=== PATIENT | male | born 1960 | race Caucasian/White ===

== ENCOUNTER 2024-09-18 13:38 | Outpatient (AMB) | payer OTHER, SELFPAY ==
--- NOTE | 2024-09-18 13:40 | MHC.OFFVIS ---
Vital Signs 09/18/24 13:47 Height 5 ft 4 in Weight 88 lb 2.958 oz BMI 15.1 BP 120/70 Blood Pressure Location Lt brachial Position Sitting Pulse 85 Pulse Source Pulse Oximeter Pulse Oximetry (%) 94 Oxygen Delivery Method Nasal Cannula Intake Visit Reasons: chronic resp failure with hypoxia Accompanied by: Self / Same As Patient Allergies amoxicillin [From Augmentin] Allergy (Intermediate, Verified 09/18/24 13:48) Rash azithromycin Allergy (Intermediate, Verified 09/18/24 13:48) Rash clavulanic acid [From Augmentin] Allergy (Intermediate, Verified 09/18/24 13:48) Rash HPI Comments Details: The patient is here for pulmonary evaluation. The patient is a 64-year-old gentleman with known COPD with extensive emphysema and chronic respiratory failure on oxygen in addition to HIV chronic kidney disease and heart failure. Apparently was recently admitted to [facility] with an exacerbation of his breathing. He did have a CT scan of the chest which I personally reviewed demonstrating extensive emphysema and also has some evidence of ground-glass opacities likely from a viral syndrome. He did have a blood gas in the hospital demonstrated that he does have evidence of both hypoxic and also hypercarbic respiratory failure. Has significant oxygen requirements. We did have him undergo a walk test here in the office to see if he would qualify for portable oxygen concentrator but his oxygen dropped to 86% demonstrating that needs to stay on continues oxygen. He gets the throughout. . His blood gas demonstrated a pCO2 of 64 minutes minutes of mercury. The patient has evidence of hypercarbic respiratory failure due to his COPD. This carries a poor prognosis and high risk for he has increased risk for rehospitalization. He does have increased work of breathing. He does need to started noninvasive ventilator to provide better gas exchange improved work of breathing and improve prognosis and decrease hospitalizations. Will going to work with his [employer] in order to get him a noninvasive ventilator this time. He is going to continue with respiratory therapy as he is using the nebulizer 2 to 3 times a day. [facility] Medical History (Updated 09/18/24 @ 20:19 by Bladimir Desir MD) CKD (chronic kidney disease) CHF (congestive heart failure) HIV (human immunodeficiency virus infection) Chronic hypoxemic respiratory failure Chronic hypercapnic respiratory failure COPD (chronic obstructive pulmonary disease) Social History (Updated 09/18/24 @ 13:49 by Saskia Reynaga CMA) Alcohol intake: former Patient Tobacco Use Status: Never used Tobacco Review of Systems Const Denies chills, Denies daytime sleepiness, Reports fatigue, Denies poor appetite, Denies snoring, Denies stops breathing during sleep, Denies weakness, Denies weight gain and Reports weight loss Eyes Denies loss of vision ENT Reports dizziness and Denies hearing loss Card Denies chest pain, Denies irregular heart rhythm, Denies claudication, Denies leg edema, Denies lightheadedness, Denies palpitations, Reports dyspnea, Reports dyspnea on exertion and Denies orthopnea Resp Reports cough, Denies hemoptysis, Denies excessive phlegm production, Reports dyspnea, Reports dyspnea on exertion, Denies snoring and Reports wheezing GI Denies abdominal pain, Denies hematochezia, Denies change in bowel habits, Denies nausea and Denies vomiting Denies dysuria and Denies urinary frequency Musc Denies arthralgias, Denies muscle weakness, Denies numbness and Denies other Skin/Breast Denies nail changes and Denies rash Neuro Denies Abnormal speech present, Reports dizziness, Denies loss of vision, Denies memory loss, Denies numbness and Denies weakness Psych Reports change in appetite and Denies memory loss Endo Reports fatigue and Denies palpitations Brayden/Lymph Denies easy bruising Aller/Immun Reports wheezing Physical Exam Vital Signs: Last Vital Signs Pulse 85 09/18/24 13:47 BP 120/70 09/18/24 13:47 Pulse Ox 94 09/18/24 13:47 Oxygen Delivery Method Nasal Cannula 09/18/24 13:47 BMI result Body Mass Index 15.1 Const General: comfortable and ill appearing Nutritional Appearance: thin HEENT Head: Yes normocephalic Eyes Conjunctivae: conjunctival abnormal bilateral pallor Neck Neck: Yes supple Chest Chest palpation & inspection: normal inspection of the chest Resp Effort & Inspection: normal respiratory effort Auscultation: diminished lung sounds Cardio Heart sounds: S1 normal heart sound present and S2 normal heart sound present GI Palpation (GI): Soft to palpation Skin General skin exam: no rashes or lesions noted Neuro Speech: No Abnormal speech present Extrem General: Yes clubbing, No cyanosis and No edema Assessment & Plan Assessment & Plan (1) COPD (chronic obstructive pulmonary disease): Code(s): J44.9 - Chronic obstructive pulmonary disease, unspecified Category: Medical Qualifiers: COPD type: emphysema Emphysema type: centrilobular Qualified Code(s): J43.2 - Centrilobular emphysema (2) Chronic hypercapnic respiratory failure: Code(s): J96.12 - Chronic respiratory failure with hypercapnia Category: Medical (3) Chronic hypoxemic respiratory failure: Code(s): J96.11 - Chronic respiratory failure with hypoxia Category: Medical (4) HIV (human immunodeficiency virus infection): Code(s): Z21 - Asymptomatic human immunodeficiency virus [HIV] infection status Category: Medical Qualifiers: HIV symptom status: currently asymptomatic, with history of HIV-related illness Qualified Code(s): B20 - Human immunodeficiency virus [HIV] disease (5) CHF (congestive heart failure): Code(s): I50.9 - Heart failure, unspecified Category: Medical Qualifiers: Heart failure type: unspecified Heart failure chronicity: unspecified Qualified Code(s): I50.9 - Heart failure, unspecified (6) CKD (chronic kidney disease): Code(s): N18.9 - Chronic kidney disease, unspecified Category: Medical Qualifiers: Chronic kidney disease stage: unspecified stage Qualified Code(s): N18.9 - Chronic kidney disease, unspecified Plan Continue respiratory therapy Nebulizer therapy Bloodwork Start non invasive ventilator to help with his hypercarbia and increased work of breathing. He carries apoor prognosis and high risk for re-hopsitalization. I will start him on an non invasive ventilator and that will help improve his gas exchange and improve prognosis and decrease hospitalizations. continue oxygen supplementation, continuous. Does not qualify for a POC at this time PFTs F/U 2 months Orders: Orders Venous Blood Gas Today J44.9 - Chronic obstructive pulmonary disease, unspecified Complete Blood Count Auto Diff Today J44.9 - Chronic obstructive pulmonary disease, unspecified Alpha 1 Anti-trypsin Today J44.9 - Chronic obstructive pulmonary disease, unspecified PFT pulmonary function test Today J43.2 - Centrilobular emphysema Basic Metabolic Panel Today J44.9 - Chronic obstructive pulmonary disease, unspecified Erythrocyte Sedimentation Rate Today J44.9 - Chronic obstructive pulmonary disease, unspecified T Spot TB Today J44.9 - Chronic obstructive pulmonary disease, unspecified Immunoglobulins,IgG IgA IgM Today J44.9 - Chronic obstructive pulmonary disease, unspecified Immunoglobulin E Today J44.9 - Chronic obstructive pulmonary disease, unspecified Coding Level of Care Code New Pt Level 5 (31099) Diagnoses Centrilobular emphysema J43.2 COPD type: emphysema Emphysema type: centrilobular Chronic hypercapnic respiratory failure J96.12 Chronic hypoxemic respiratory failure J96.11 Currently asymptomatic HIV infection, with history of HIV-related illness B20 HIV symptom status: currently asymptomatic, with history of HIV-related illness Congestive heart failure, unspecified HF chronicity, unspecified heart failure type I50.9 Heart failure type: unspecified Heart failure chronicity: unspecified Chronic kidney disease, unspecified CKD stage N18.9 Chronic kidney disease stage: unspecified stage Time Spent (min) 60
[2024-09-18 13:47] VITALS: BP 120/70; PULSE 85; O2SAT 94; BMI 15.1
--- OUTSIDE RECORDS SUMMARY | 2024-09-18 16:09 | XMS_ITS | Encounter Summary ---
Author Organization [facility] Address [id number] [place] [address] Care Team Providers Care Kitchen Help Handyman Name Role Phone Pablo Hansen MD Primary Care Provider [phone] Reason for Visit * Reason Onset Date Comments Shortness of Breath 09/11/2024 Encounter Details Date Type Department Care Team (Late st Contact Info) Description 09/11/2024 Telephone [facility] - [facility] [address] [facility] [address] [place] [phone] Zeny Archer MD [address] [facility] [address] [place] [address] Shortness of Breath Social History Tobacco Use Types Packs/Day Years Used Date Smoking Tobacco: Never Smokeless Tobacco: Never Alcohol Use Standard Drinks/Week Comments No 0 (1 standard drink = 0.6 oz pur e alcohol) Sex and Gender Information Value Date Recorded Sex Assigned at Not on file Legal Sex Male 4:41 AM EST Gender Identity Not on file Sexual Orientation Not on file documented as of this encounter Progress Notes * Angelia Serna - 09/18/2024 9:16 AM EDT Spoke with the patient and scheduled for 09/27/24 with Jennifer Morataya. * Angelia Serna - 09/13/2024 9:21 AM EDT The patient is still admitted at [facility], will continue to monitor. * Susi Conner RN - 09/11/2024 1:17 PM EDT ACCESS : Please schedule pt for HFU Multiple [facility] admissions DC SUMMARY in media section of [facility]. Dx: SOB, fatigue, medication changes Spoke with sister Nataly informed she will hear from scheduling Pt had telehealth with PCP 08/03/24 Pulmonary 09/18/24 * JON Bullock - 09/11/2024 12:33 PM EDT He should see PCP prior to cardiology OV - he has significant anemia, had LETTY for which nephrotoxicmeds were held , he has severe emphysema with hypoxemia requiring O2 reschedule hospital follow up after seen by PCP plse * Susi Conner RN - 09/11/2024 11:42 AM EDT Pt has had three hospital stay at [facility] DC SUMMARY are all in media section Labs from 08/24/24 scanned into media section Pt seeing pulmonary 09/18/24 Dr quintero in [place]. Telehealth with PCP 08/03/24 Spoke with sister Nataly states pt is SOB with exertion. SOB has been increasing since Travon and Jovany were dc'd at [facility] in pt stay 07/21/24-07/28/24 for abnormal kidney lab work. Pt is very weak and fatigued. Sleeping 16 hours daily. Denies dizziness, feeling lightheaded. Denies PND, Orthopnea. Asking for a sooner appt than 11/28/24 to address medications and fatigue. Pt had to cancel 09/18 due to pulmonary appt * N'Liliana Mock - 09/11/2024 11:16 AM EDT Patient and his sister Nataly states patient was seen at [facility] within the last few months for COPD and he was taken off of his Entresto and Farxiga. Patient has been having a harder time breathing ever since. He has to sit down all the time after walking Patient gave verbal consent to speak toNataly. Please call her at [phone] documented in this encounter Plan of Treatment Upcoming Encounters Date Type Department Care Team (Late st Contact Info) Description 09/27/2024 2:40 PM EDT Office Visit [facility] - [address] [place] [address] Jennifer Morataya PA [address] [place] [address] 11/28/2024 1:45 PM EDT Office Visit [facility] - [address] [place] [phone] Zeny Archer MD [address] [place] [address] documented as of this encounter Visit Diagnoses Not on filedocumented in this encounter Care Teams Kitchen Help Handyman Relationship Specialty Start Date End Date Pablo Hansen MD [address] [place] [address] PCP - General 07/03/15 documented as of this encounter
--- OUTSIDE RECORDS SUMMARY | 2024-09-18 16:09 | XMS_ITS | Clinical Summary ---
Author Organization [address] [place] [address] Address [address] [place] [address] Phone Care Team Providers Care Food Cooking Machine Operator Name Role Phone Pablo Hansen MD Primary Care Provider [phone] Encounters Date Type Department Care Team Description 09/11/2024 Telephone [facility] - [facility] [address] [facility] [address] [place] [phone] Zeny Archer MD Shortness of Breath 08/24/2024 Telephone [facility] - [facility] [address] [facility] [address] [place] [address] Zeny Archer MD out of oxygen (SOB ) 08/18/2024 Telephone [facility] - [facility] [address] [facility] [address] [place] [phone] Zeny Archer MD called pt to r/s his 09/12/[address] Archer from Last 3 Months Surgical History Surgery Date Site/Laterality Comments COLONOSCOPY 03/14/2020 PROCEDURE: HISTORICAL COLONOSCOPY OTHER SURGICAL HISTORY 06/08/2017 PROCEDURE: HISTORY OTHER; COMMENT: Upper gastointestinal endoscopy including esophagus,stomach and either the duodenum and or jejunum as appropriate ;diagnostic, with or without collection of specimen(s) by brushing or washing (separate procedure) COLONOSCOPY 06/08/2016 PROCEDURE: HISTORICAL COLONOSCOPY OTHER SURGICAL HISTORY 11/12/2015 PROCEDURE: HISTORY OTHER; COMMENT: Lap Ileocolic resection w/ anastamosis OTHER SURGICAL HISTORY 06/2015 PROCEDURE: HISTORY OTHER; COMMENT: Dilitation of stricture of ileum ROTATOR CUFF REPAIR 2013 Right PROCEDURE: HISTORICAL ROTATOR CUFF REPAIR OTHER SURGICAL HISTORY PROCEDURE: HISTORY OTHER; COMMENT: Colonoscopy,EGD, multiple APPENDECTOMY PROCEDURE: HISTORICAL APPENDECTOMY; COMMENT: Appendectomy,lysis of adhesions Medical History Medical History Date Comments Anxiety DX:Anxiety Basal cell carcinoma DX:Basal ce ll carcinoma; COMMENT: sees Dr. Murcia BPH without obstruction/lowe r urinary tract symptoms DX:BPH without obstruction/l ower urinary tract symptoms CAD (coronary artery disease) DX :CAD (coronary artery disease); COMMENT: -NSTEMI 2017 Crohn's colitis ([facility] V24 , [facility] V28) DX:Crohn's colitis (HCC) Crohn's disease ([facility] V24 , [facility] V28) DX:Crohn's disease (HCC); CO MMENT: dx'd 06/2015 Depression DX:Depression Emphysema/COPD ([facility] V24, [facility] V28) DX:Emphysema/COPD ([facility]) Fatigue DX:Fatigue GERD (gastroesophageal reflux disease) DX:GERD (gastroesophageal reflux disease) H/O small bowel obstruction DX:H /O small bowel obstruction; COMMENT: Recurrent Hyperlipidemia DX:Hyperlipidemi a Hypertension DX:Hypertension Hypothyroidism DX:Hypothyroidis m Peripheral neuropathy DX:Periphe ral neuropathy Purpura ([facility] V24) DX:Purpura ([facility]) HIV (human immunodeficiency virus infection) ([facility] V24, [facility] V28) DX:HIV (human im munodeficiency virus infection) ([facility]) Dental infection DX:Dental infec tion Kidney disease, chronic, sta ge III (GFR 30-59 ml/min) ([facility] V24, [facility] V28) DX:Kidney dis ease, chronic, stage III (GFR 30-59 ml/min) ([facility]) COPD with emphysema ([facility] V24, [facility] V28) DX:COPD with emphysema ([facility]) 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 ([facility] V24, [facility] V28) DX:Non-pressure chronic ulce r of left ankle with fat layer exposed ([facility]) Chronic kidney disease (CKD) , stage II (mild) DX:Chronic kidney disease (C KD), stage II (mild) CKD (chronic kidney disease) DX: CKD (chronic kidney disease) Covid-19 DX:COVID-19 Abdominal pain DX:Abdominal bob n Anemia DX:Anemia Hematuria DX:Hematuria Immunocompromised state (CMS/[facility] V24) DX:Immunocompromised state (HCC) Legionella infection (CMS/HC C V24, CMS/HCC V28) DX:Legionella infection (HCC ) RLL pneumonia DX:RLL pneumonia Shoulder pain DX:Shoulder pain Family History Medical History Relation Name Comments Other: Hepatitis C Brother Sleep apnea Father Coronary artery disease Maternal Grandfather Lung cancer Maternal Grandmother Relation Name Status Comments Brother Father Maternal Grandfather Maternal Grandmother Social History Tobacco Use Types Packs/Day Years Used Date Smoking Tobacco: Never Smokeless Tobacco: Never Alcohol Use Standard Drinks/Week Comments No 0 (1 standard drink = 0.6 oz pur e alcohol) Sex and Gender Information Value Date Recorded Sex Assigned at Not on file Legal Sex Male 4:41 AM EST Gender Identity Not on file Sexual Orientation Not on file Obstetrics History Last Filed Vital Signs Vital Sign Reading Time Taken Comments Blood Pressure 142/78 11/02/2023 1:48 PM EDT Pulse 68 11/02/2023 1:34 PM EDT Temperature - - Respiratory Rate - - Oxygen Saturation - - Inhaled Oxygen Concentration - - Weight 49.1 kg (108 lb 3.2 oz) 11/02/2023 1:34 P M EDT Height 162.6 cm (5' 4 ) 11/02/2023 1:34 PM EDT Body Mass Index 18.57 11/02/2023 1:34 PM EDT Plan of Treatment Upcoming Encounters Date Type Department Care Team (Late st Contact Info) Description 09/27/2024 2:40 PM EDT Office Visit [facility] - [facility] [address] [facility] [address] [place] [phone] Jennifer Morataya PA [address] [place] [address] 11/28/2024 1:45 PM EDT Office Visit [facility] - [facility] [address] [place] [phone] Zeny Archer MD [address] [place] [address] Health Maintenance Due Date Last Done Comments Zoster Vaccines (1 of 2) 1979 Pneumococcal Vaccine: 50+ Years (3 of 3 - PCV) 07/16/2016 07/16/2015, 11/16/2011 RSV Immunization Adult Patients (1 - Risk 60-74 years 1-dose series) 2020 Pneumococcal Vaccine: Pediatrics (0 to 5 Years) and At-Risk Patients (6 to 64 Years) (4 of 4 - PCV20 or PCV21) 07/16/2020 07/16/2015, 02/13/2013, 11/16/2011 COVID-19 Vaccine (3 - Pfizer risk series) 09/09/2020 08/12/2020, 07/20/2020 Cholesterol Screening (Lipid Panel) 05/08/2022 Colorectal Cancer Screening: Colonoscopy 05/08/2022 Depression Screening 05/08/2022 HIV Screening 05/08/2022 Hepatitis C Screening 05/08/2022 Medicare Annual Wellness Visit 05/08/2022 Social Influencers of Health Screening 05/08/2022 DTaP,Tdap,and Td Vaccines (2 - Td or Tdap) 02/13/2023 02/13/2013 Hypertension/CHF/CAD Annual BMP Blood Test 12/06/2024 12/07/2023, 12/22/2022 Influenza Vaccine (Season Ended) 2025 04/03/2023, 06/12/2020, 03/28/2019, Additional history exists HIB Vaccines Aged Out No longer eligi ble based on patient's age to complete this topic HPV Vaccines Aged Out No longer eligi ble based on patient's age to complete this topic Hepatitis A Vaccines Aged Out No long er eligible based on patient's age to complete this topic Hepatitis B Vaccines Aged Out No long er eligible based on patient's age to complete this topic IPV Vaccines Aged Out No longer eligi ble based on patient's age to complete this topic MMR Vaccines Aged Out No longer eligi ble based on patient's age to complete this topic Meningococcal ACWY Vaccine Aged Out N o longer eligible based on patient's age to complete this topic Meningococcal B Vaccine Aged Out No l onger eligible based on patient's age to complete this topic RSV Immunization Patients Under 20 months Aged Out No longer eligible based on patient's age to complete this topic Varicella Vaccines Aged Out No longer eligible based on patient's age to complete this topic Procedures Procedure Name Priority Date/Time Associated Diagnosis Comments ECG EXTERNAL Routine 08/27/2024 7:44 AM EDT from Last 3 Months Results * ECG-External (08/27/2024 7:44 AM EDT) us Historical Provider ECG ORDERABLES Final Res ult from Last 3 Months Insurance [employer] MEDICARE Member Subscriber Plan / Payer (Ef fective 2024-Present) Name:Venu Parks Relation to Subscriber:Self Name:Venu Parks Payer ID:[id number] Group ID:Not on file Type:Not on file Address: [place] [address] [address] [place] [phone] Care Teams Food Cooking Machine Operator Relationship Specialty Start Date End Date Pablo Hansen MD [address] [place] [address] PCP - General 07/03/15
--- OUTSIDE RECORDS SUMMARY | 2024-09-18 16:09 | XMS_ITS | Clinical Summary ---
Author Organization [facility] Address [address] [place] [address] Phone Care Team Providers Care Railway Patrol Officer Name Role Phone Pablo Hansen MD Primary Care Provider [phone] Allergies Active Allergy Reactions Criticality Noted Date Comments Amoxicillin-Pot Clavulanate Other (see comments) Medium 01/22/2023 Other reaction(s): rash patient denies allergy to augmentin Benzonatate 12/22/2022 Medications Aspirin Low Dose 81 MG EC tablet Take 81 mg by mouth 1 (one) time each day 1 Active atorvastatin (LIPITOR) 40 MG tablet Take 40 mg by mouth 1 (one) time each day in the evening 1 Active azaTHIOprine (IMURAN) 50 MG tablet Take 50 mg by mouth 1 (one) time each day 1 Active [facility] D3 50 MCG (1999) capsule Take 2,000 Units by mouth 1 (one) time each day 1 Active Genvoya [phone] MG per tablet Take 1 tablet by mouth 1 (one) time each day 1 Active gabapentin (NEURONTIN) 100 MG capsule Take 100 mg by mouth 3 times a day 1 Active levothyroxine (SYNTHROID, LEVOTHROID) 50 MCG tablet Take 50 mcg by mouth 1 (one) time each day 1 Active metoprolol succinate XL (TOPROL XL) 50 MG 24 hr tablet Take 50 mg by mouth 1 (one) time each day 1 Active Multiple Vitamin (Daily-Vick Multivitamin) tablet Take 1 tablet by mouth 1 (one) time each day 1 Active tamsulosin (FLOMAX) 0.4 MG 24 hr capsule Take 0.4 mg by mouth 1 (one) time each day 1 Active venlafaxine XR (EFFEXOR-XR) 37.5 MG 24 hr capsule Take 75 mg by mouth 1 (one) time each day 1 Active clonazePAM (KlonoPIN) 1 MG tablet Take 1 mg by mouth 2 (two) times a day Active inFLIXimab (REMICADE) 100 MG injection Infuse into a venous catheter Active mirtazapine (REMERON) 45 MG tablet Take 45 mg by mouth every night Active nitroglycerin (NITROSTAT) 0.[address] 0.4 mg under the tongue every 5 (five) minutes if needed for chest pain Active dronabinol (MARINOL) 10 MG capsule Take 10 mg by mouth if needed 1 Active Ventolin HFA 108 (90 Base) MCG/ACT inhaler INHALE 2 PUFFS 4 TIMES A DAY NEEDED FOR WHEEZING 2 Active torsemide (DEMADEX) 20 MG tablet Take 20 mg by mouth 1 (one) time each day Active Farxiga 10 MG tablet Take by mouth 1 (one) time each day 4 Active ferrous sulfate 325 (65 Fe) MG EC tablet TAKE 1 TABLET BY MOUTH EVERY OTHER DAY. TAKE WITH VITAMIN C TO HELP ABSORPTION 4 Active Active Problems Problem Noted Date Diagnosed Date Stage 3b chronic kidney disease 10/18/2023 Basal cell carcinoma of skin 09/16/2021 Congestive heart failure 09/16/2021 Coronary arteriosclerosis 09/16/2021 Crohn's disease of colon 09/16/2021 Depressive disorder 09/16/2021 Emphysema 09/16/2021 Fatigue 09/16/2021 Gastroesophageal reflux disease 09/16/2021 Hyperlipidemia 09/16/2021 Hypertensive disorder 09/16/2021 Peripheral neuropathy 09/16/2021 Small bowel obstruction 09/16/2021 Purpura 09/16/2021 Abdominal pain 08/24/2021 Ankle ulcer 08/24/2021 Stage 3b chronic kidney disease 05/20/2021 Renal osteodystrophy 05/20/2021 Stage 3 chronic kidney disease 02/13/2021 Acute kidney failure 02/13/2021 Anemia 02/13/2021 Stage 3a chronic kidney disease 02/13/2021 Anemia in chronic kidney disease 02/13/2021 Resolved Problems Problem Noted Date Diagnosed Date Resolved Date Acute hypoxemic respiratory failure 02/13/2021 02/13/2021 Acute on chronic systolic co ngestive heart failure 02/13/2021 02/13/2021 Crohn's disease with fistula 02/13/2021 02/13/2021 Human immunodeficiency virus (HIV) disease 02/13/2021 02/13/2021 Acute encephalopathy 02/13/2021 021 Anxiety 02/13/2021 02/13/2021 Hypothyroidism 02/13/2021 02/13/2021 Aspiration pneumonia 02/13/2021 021 Submandibular salivary gland swelling 02/13/2021 02/13/2021 Benign prostatic hyperplasia without lower urinary tract symptom 02/13/2021 02/13/2021 Immunizations Immunization Administration Dates Next Due Influenza Vaccine, Quadrival ent, Adjuvanted 04/03/2023 Influenza, Quadrivalent, Pre servative Free 04/03/2023 Influenza, Unspecified 06/12/2020,2018,04/18/2018,03/08,06/15/2016,04/21/2010 Pfizer SARS-COV-2 08/12/2020,07/20/2020 Pneumococcal Conjugate 02/13/2013 Pneumococcal Conjugate 13-Valent 02/13/2013 Pneumococcal Polysaccharide 07/16/2015, 2 Tdap 02/13/2013 Family History Medical History Relation Comments Cancer Maternal Grandmother Relation Status Comments Maternal Grandmother Social History Tobacco Use Types Packs/Day Years Used Date Smoking Tobacco: Never Smokeless Tobacco: Never Alcohol Use Standard Drinks/Week Comments Not Currently 0 (1 standard drink = 0.6 oz pur e alcohol) Sex and Gender Information Value Date Recorded Sex Assigned at Not on file Legal Sex Male 11:21 AM EDT Gender Identity Not on file Sexual Orientation Not on file Last Filed Vital Signs Vital Sign Reading Time Taken Comments Blood Pressure 136/78 02/13/2021 2:37 PM EDT Pulse 70 02/13/2021 2:37 PM EDT Temperature - - Respiratory Rate - - Oxygen Saturation 97% 02/13/2021 2:37 PM EDT Inhaled Oxygen Concentration - - Weight 49.9 kg (110 lb) 02/15/2024 2:49 PM EDT Height - - Body Mass Index - - Plan of Treatment Upcoming Encounters Date Type Department Care Team (Late st Contact Info) Description 10/03/2024 10:45 AM EDT Office Visit [facility] [address] [facility] [address] [place] [phone] Chin Ortega MD [address] [facility] [address] [place] [phone] Health Maintenance Due Date Last Done Comments Colorectal Cancer Screening: Annual FOBT 2009 Colorectal Cancer Screening: Colonoscopy 2009 Colorectal Cancer Screening: Sigmoidoscopy 2009 Hepatitis B Vaccine (1 of 3 - Risk 3-dose series) 2020 Pneumococcal Vaccine: 50+ Ye ars (4 of 4 - PCV20 or PCV21) 07/16/2020 07/16/2015, 02/13/2013, 02/13/2013, Additional history exists Influenza Vaccine (Season Ended) 2025 04/03/2023, 04/03/2023, 06/12/2020, Additional history exists Pneumococcal Vaccine: Peds ( 0 to 5 Years) and At-Risk Patients (6 to 49 Years) Discontinued 07/16/2015, 02/13/2013, 02/13/2013, Additional history exists Insurance [facility] [id number] [place] [address] [facility] ([id number]) [address] [place] [address] [facility] ([id number]) Care Teams Railway Patrol Officer Relationship Specialty Start Date End Date Pablo Hansen MD [address] [place], [place] PCP - General Internal Medicine 02/13/21
--- OUTSIDE RECORDS SUMMARY | 2024-09-18 16:09 | XMS_ITS | Encounter Summary ---
Author Organization [facility] Address [address] [facility] [address] [place] [address] Phone Care Team Providers Care Digital Tech Name Role Phone Pablo Hansen MD Primary Care Provider [phone] Encounter Details Date Type Department Care Team (Late Contact Info) Description 11/17/2023 Telephone [facility] [address] [facility] [address] [place] [phone] Chin Ortega MD [address] [facility] [address] [place] [phone] Social History Tobacco Use Types Packs/Day Years [...] on file documented as of this encounter Miscellaneous Notes * Telephone Encounter - Sumaya Hunter [place] - 11/23/2023 10:[address] ortega patient calling requesting a call he had labs done and need to know if your doing a biopsy documented in this encounter Plan of Treatment Upcoming Encounters Date Type Department Care Team ([facility] Contact Info) Description 10/03/2024 10:45 AM EDT Office Visit [facility] [address] [phone] Chin Ortega MD [address] [phone] documented as of this encounter Visit Diagnoses Not on filedocumented in this encounter Care Teams Digital Tech Relationship Specialty Start Date End Date Pablo Hansen MD [facility] [place], [place] PCP - General Internal Medicine 02/13/21 documented as of this encounter
== END 2024-09-18 14:33 | disposition home or self-care (01) ==
LOC: HO.HPS 13:39
PROVIDERS: PCP Internal Medicine; Referring Provider Internal Medicine; Visit Provider Hospitalist
DX: J43.2 Centrilobular emphysema (principal); J96.11 Chronic respiratory failure with hypoxia; J96.12 Chronic respiratory failure with hypercapnia; B20 Human immunodeficiency virus [HIV] disease; I50.9 Heart failure, unspecified; N18.9 Chronic kidney disease, unspecified
CPT/HCPCS: 99205

== ENCOUNTER 2024-09-18 13:38 | Outpatient (REF) | payer OTHER, SELFPAY ==
[2024-09-18 15:19] LABS: MANUAL DIFF FLAG NO
[2024-09-18 15:40] LABS: Basophils Percent Auto 0.1 % (0-2); Eosinophils Absolute Auto 0.1 X10*3/uL (0.0-0.4); Eosinophils Percent Auto 0.6 % (0-4); Hematocrit 29.9 % (42.0-52.0); Hemoglobin 10.3 g/dl (14.0-18.0); Imm Gran Abs Auto 0.05 X10*3/uL (0.00-0.03); Imm Gran Pct Auto 0.6 % (0.0-0.4); Lymphocytes Absolute Auto 1.5 X10*3/uL (1.2-4.9); Lymphocytes Percent Auto 19.2 % (20-40); Mean Corpuscular HGB Conc 34.4 g/dl (31.0-36.0); Mean Corpuscular Volume 101.7 fL (80.0-98.0); Monocytes Absolute Auto 0.6 X10*3/uL (0.1-1.2); Monocytes Percent Auto 7.1 % (2-11); Neutrophils Absolute Auto 5.7 x10*3/uL (2.0-8.3); Neutrophils Percent Auto 72.4 % (45-73); Platelet Count 146 X10*3/uL (160-400); Red Blood Count 2.94 X10*6/uL (4.60-5.80); Red Cell Distribution Width 16.8 % (11.0-16.0); White Blood Count 7.9 X10*3/uL (4.8-10.8)
[2024-09-18 16:17] LABS: Erythrocyte Sedimentation Rate 37 MM/HR (0-15)
[2024-09-18 16:23] LABS: Anion Gap 12 (12-20); Blood Urea Nitrogen 37 mg/dL (9-16); Carbon Dioxide 27 mmol/L (22-29); Chloride 106 mmol/L (96-108); Estimated Glomerular Filt Rate 57; Glucose Random 128 mg/dL (60-115); Potassium 4.1 mmol/L (3.3-5.1); Sodium 141 mmol/L (135-145)
--- OUTSIDE RECORDS SUMMARY | 2024-09-18 17:44 | XMS_ITS | Clinical Summary ---
Author Organization Unknown Care Team Providers Care Audio Visual Manager Name Role Phone NII BAKER, SHEREE Unavailable Unavailable KLARISSA KINSEY, LASHELL Unavailable Unavailable Payers Payer Name Policy Type Policy Number Effective Date Expira tion Date [facility] [id number] MEDICAID [facility] [id number] MEDICARE - [place] - [facility] [id number] Problems Condition Name Condition Details Condition Category Status Onset Date Resolution Date Last Treatment Date Treating Clinician Comments ANXIETY DISORDER, UNSPECIFIED Active 07-30 00:00: 00 Allergies, Adverse Reactions, Alerts Allergy Name Allergy Type Status Severity Reaction(s) Onset Date Inactive Date Treating Clinician Comments AUGMENTIN Propensity to adverse reactions Active 08-07 13:26: 06 Medications Ordered Medication Name Filled Medication Name Start Date Stop Date Current Medication? Ordering Clinician Indication Dosage Frequency Signature (SIG) Comments Components clonazepam 1 mg tablet 2022-05 00:00: 00 03-13 23:59 :00 No [id number] Per instruc tions TWICE A DAY FOR 7 DAYS Per instructio ns TWICE A DAY FOR 7 DAYS (route: oral) Med Classific ation: Central Nervous System Agents gabapentin 100 mg capsule 2022-05 00:00: 00 05-20 23:59 :00 No [id number] Per instruc tions 3 TIMES A DAY 30 DAYS Per instructio ns 3 TIMES A DAY 30 DAYS (route: oral) Med Classific ation: Central Nervous System Agents venlafaxine ER 37.5 mg capsule,ext ended release 24 hr 2022-05 00:00: 00 03-13 23:59 :00 No [id number] Per instruc tions [id number] DAYS Per instructio ns [id number] DAYS (route: oral) Med Classific ation: Central Nervous System Agents Ventolin HFA 90 mcg/actuati on aerosol inhaler 2022-05 00:00: 00 05-20 23:59 :00 No [id number] Per instruc tions EVERY 6 HOURS NEEDED Per instructio ns EVERY 6 HOURS NEEDED (route: inhalation ) Med Classific ation: Respirato ry Therapy Agents sucralfate 1 gram tablet 2022-05 00:00: 00 05-20 23:59 :00 No [id number] Per instruc tions 4 TIMES A DAY BEFORE MEALS AND BEDTIME Per instructio ns 4 TIMES A DAY BEFORE MEALS AND BEDTIME (route: oral) Med Classific ation: Gastroint estinal Therapy Agents clopidogrel 75 mg tablet 2022-05 00:00: 00 07-14 23:59 :00 No [id number] Per instruc tions EVERY DAY Per instructio ns EVERY DAY (route: oral) Med Classific ation: Hematolog ical Agents atorvastati n 40 mg tablet 2022-05 00:00: 00 05-20 23:59 :00 No [id number] 1 tablet BEDTIME 1 tablet BEDTIME (route: oral) Med Classific ation: Cardiovas cular Therapy Agents azathioprin e 50 mg tablet 2022-05 00:00: 00 04-10 23:59 :00 No [id number] 1 tablet DAILY 1 tablet DAILY (route: oral) Med Classific ation: Immunosup pressive Agents benzonatate 100 mg capsule 2022-05 00:00: 00 05-20 23:59 :00 No [id number] 1 capsule 3 TIMES DAILY 1 capsule 3 TIMES DAILY (route: oral) Med Classific ation: Respirato ry Therapy Agents cholecalcif kirill (vitamin D3) 50 mcg (2,000 unit) capsule 2022-05 00:00: 00 05-20 23:59 :00 No [id number] 1 capsule DAILY 1 capsule DAILY (route: oral) Med Classific ation: Electroly te Balance-N utritiona l Products clonidine HCl 0.1 mg tablet 2022-05 00:00: 00 07-14 23:59 :00 No [id number] 2 tablet BEDTIME 2 tablet BEDTIME (route: oral) Med Classific ation: Cardiovas cular Therapy Agents Anoro Ellipta 62.5 mcg-25 mcg/actuati on powder for inhalation 2022-05 00:00: 00 05-20 23:59 :00 No [id number] 1 inhalat ion DAILY 1 inhalation DAILY (route: inhalation ) Med Classific ation: Respirato ry Therapy Agents gabapentin 100 mg capsule 2022-05 00:00: 00 05-20 23:59 :00 No [id number] 2 capsule 3 TIMES DAILY 2 capsule 3 TIMES DAILY (route: oral) Med Classific ation: Central Nervous System Agents Lasix 20 mg tablet 2022-05 00:00: 00 07-14 23:59 :00 No [id number] 1 tablet DAILY 1 tablet DAILY (route: oral) Med Classific ation: Cardiovas cular Therapy Agents Levo-T 50 mcg tablet 2022-05 00:00: 00 05-20 23:59 :00 No [id number] 1 tablet DAILY 1 tablet DAILY (route: oral) Med Classific ation: Endocrine metoprolol succinate ER 25 mg tablet,exte nded release 24 hr 2022-05 00:00: 00 05-20 23:59 :00 No [id number] 1 tablet DAILY 1 tablet DAILY (route: oral) Med Classific ation: Cardiovas cular Therapy Agents Miralax 17 gram/dose oral powder 2022-05 00:00: 00 05-20 23:59 :00 No [id number] 17 gram DAILY 17 gram DAILY (route: oral) Med Classific ation: Gastroint estinal Therapy Agents mirtazapine 45 mg tablet 2022-05 00:00: 00 05-20 23:59 :00 No [id number] 1 tablet BEDTIME 1 tablet BEDTIME (route: oral) Med Classific ation: Central Nervous System Agents Multivitami n 50 Plus tablet 2022-05 00:00: 00 05-20 23:59 :00 No [id number] 1 tablet DAILY 1 tablet DAILY (route: oral) Med Classific ation: Electroly te Balance-N utritiona l Products omeprazole 40 mg capsule,del ayed release 2022-05 00:00: 00 05-20 23:59 :00 No [id number] 1 capsule 2 TIMES DAILY 1 capsule 2 TIMES DAILY (route: oral) Med Classific ation: Gastroint estinal Therapy Agents OXYGEN 2022-05 00:00: 00 05-20 23:59 :00 No [id number] 2 Liter DAILY 2 Liter DAILY (route: Oxygen) Med Classific ation: Medical Oxygen pregabalin 100 mg capsule 2022-05 00:00: 00 03-13 23:59 :00 No [id number] 1 capsule 2 TIMES DAILY 1 capsule 2 TIMES DAILY (route: oral) Med Classific ation: Central Nervous System Agents sucralfate 1 gram tablet 2022-05 00:00: 00 03-13 23:59 :00 No [id number] 1 g 3 TIMES DAILY 1 g 3 TIMES DAILY (route: oral) Med Classific ation: Gastroint estinal Therapy Agents tamsulosin 0.4 mg capsule 2022-05 00:00: 00 05-20 23:59 :00 No [id number] 1 capsule DAILY 1 capsule DAILY (route: oral) Med Classific ation: Genitouri nary Therapy venlafaxine 37.5 mg tablet 2022-05 00:00: 00 05-20 23:59 :00 No [id number] 2 tablet DAILY 2 tablet DAILY (route: oral) Med Classific ation: Central Nervous System Agents aspirin 81 mg tablet,zach yed release 07-14 00:00: 00 05-20 23:59 :00 No [id number] 1 tablet DAILY 1 tablet DAILY (route: oral) Med Classific ation: Hematolog ical Agents doxycycline hyclate 100 mg capsule 07-14 00:00: 00 03-13 23:59 :00 No [id number] 1 capsule 2 TIMES DAILY 1 capsule 2 TIMES DAILY (route: oral) Med Classific ation: Anti-Infe ctive Agents Entresto 49 mg-51 mg tablet 07-14 00:00: 00 05-20 23:59 :00 No [id number] 1 tablet 2 TIMES DAILY 1 tablet 2 TIMES DAILY (route: oral) Med Classific ation: Cardiovas cular Therapy Agents Farxiga 10 mg tablet 2-15 00:00: 00 05-20 23:59 :00 No [id number] 1 tablet DAILY 1 tablet DAILY (route: oral) Med Classific ation: Endocrine spironolact one 25 mg tablet 2-15 00:00: 00 03-13 23:59 :00 No [id number] 1 tablet DAILY 1 tablet DAILY (route: oral) Med Classific ation: Cardiovas cular Therapy Agents thiamine HCl (vitamin B1) 100 mg tablet - 00:00: 00 05-20 23:59 :00 No [id number] 1 tablet DAILY 1 tablet DAILY (route: oral) Med Classific ation: Electroly te Balance-N utritiona l Products torsemide 20 mg tablet - 00:00: 00 04-10 23:59 :00 No [id number] 2 tablet 2 TIMES DAILY 2 tablet 2 TIMES DAILY (route: oral) Med Classific ation: Cardiovas cular Therapy Agents Trelegy Ellipta 200 mcg-62.5 mcg-25 mcg powder for inhalation 3-07 00:00: 00 05-20 23:59 :00 No [id number] 1 inhalat ion DAILY 1 inhalation DAILY (route: inhalation ) Med Classific ation: Respirato ry Therapy Agents clonazepam 1 mg tablet 2023-05 0-15 00:00: 00 05-20 23:59 :00 No [id number] for anxiety 1 tablet 2 TIMES DAILY 1 tablet 2 TIMES DAILY (route: oral) Med Classific ation: Central Nervous System Agents mupirocin 2 % topical ointment 2023-05 0-15 00:00: 00 05-20 23:59 :00 No [id number] 1 application 3 times a day for leg sores Per instruc tions 3 TIMES DAILY Per instructio ns 3 TIMES DAILY (route: topical) Med Classific ation: Dermatolo gical ondansetron 4 mg disintegrat ing tablet 2023-05 0-15 00:00: 05-20 23:59 :00 No [id number] nusea and vomiting 1 tablet EVERY 6 HOURS 1 tablet EVERY 6 HOURS (route: oral) Med Classific ation: Gastroint estinal Therapy Agents azathioprin e 50 mg tablet 2023-05 00:00: 00 05-20 23:59 :00 No [id number] 1 tablet BEDTIME 1 tablet BEDTIME (route: oral) Med Classific ation: Immunosup pressive Agents Genvoya 150 mg-150 mg-200 mg-10 mg tablet 2023-05 00:00: 00 05-20 23:59 :00 No [id number] 1 tablet EVERY AM 1 tablet EVERY AM (route: oral) Med Classific ation: Anti-Infe ctive Agents torsemide 20 mg tablet 2023-05 00:00: 00 05-20 23:59 :00 No [id number] 1 tablet EVERY AM 1 tablet EVERY AM (route: oral) Med Classific ation: Cardiovas cular Therapy Agents albuterol sulfate 2.5 mg/3 mL (0.083 %) solution for nebulizatio n 08-07 00:00: 00 Yes [id number] FOR SOB 2.5 mg EVERY 6 HOURS 2.5 mg EVERY 6 HOURS (route: inhalation ) Med Classific ation: Respirato ry Therapy Agents albuterol sulfate HFA 90 mcg/actuati on aerosol inhaler 08-07 00:00: 00 Yes [id number] FOR SHORTNESS OF BREATH 2 puff EVERY 6 HOURS 2 puff EVERY 6 HOURS (route: inhalation ) Med Classific ation: Respirato ry Therapy Agents aspirin 81 mg tablet,zach yed release 08-07 00:00: 00 Yes [id number] 1 tablet DAILY 1 tablet DAILY (route: oral) Med Classific ation: Hematolog ical Agents atorvastati n 40 mg tablet 08-07 00:00: 00 Yes [id number] 1 tablet BEDTIME 1 tablet BEDTIME (route: oral) Med Classific ation: Cardiovas cular Therapy Agents azathioprin e 50 mg tablet 08-07 00:00: 00 Yes [id number] 1 tablet DAILY 1 tablet DAILY (route: oral) Med Classific ation: Immunosup pressive Agents benzonatate 100 mg capsule - 00:00: 00 Yes [id number] FOR COUGH 1 capsule 3 TIMES DAILY 1 capsule 3 TIMES DAILY (route: oral) Med Classific ation: Respirato ry Therapy Agents cholecalcif kirill (vitamin D3) 50 mcg (2,000 unit) capsule - 00:00: 00 Yes [id number] 1 capsule DAILY 1 capsule DAILY (route: oral) Med Classific ation: Electroly te Balance-N utritiona l Products clonazepam 1 mg tablet 08-07 00:00: 00 Yes [id number] FOR ANXIETY 1 tablet 2 TIMES DAILY 1 tablet 2 TIMES DAILY (route: oral) Med Classific ation: Central Nervous System Agents dronabinol 10 mg capsule 08-07 00:00: 00 Yes [id number] FOR NAUSEA 1 capsule 2 TIMES DAILY 1 capsule 2 TIMES DAILY (route: oral) Med Classific ation: Gastroint estinal Therapy Agents ferrous sulfate 325 mg (65 mg iron) tablet 08-07 00:00: 00 Yes [id number] 1 tablet DAILY 1 tablet DAILY (route: oral) Med Classific ation: Electroly te Balance-N utritiona l Products gabapentin 100 mg capsule 08-07 00:00: 00 Yes [id number] 2 capsule 3 TIMES DAILY 2 capsule 3 TIMES DAILY (route: oral) Med Classific ation: Central Nervous System Agents Genvoya 150 mg-150 mg-200 mg-10 mg tablet 08-07 00:00: 00 Yes [id number] 1 tablet DAILY 1 tablet DAILY (route: oral) Med Classific ation: Anti-Infe ctive Agents levothyroxi ne 50 mcg tablet 08-07 00:00: 00 Yes [id number] 1 tablet DAILY 1 tablet DAILY (route: oral) Med Classific ation: Endocrine metoprolol succinate ER 25 mg tablet,exte nded release 24 hr 08-07 00:00: 00 Yes [id number] 1 tablet DAILY 1 tablet DAILY (route: oral) Med Classific ation: Cardiovas cular Therapy Agents mirtazapine 45 mg tablet - 00:00: 00 Yes [id number] 1 tablet BEDTIME 1 tablet BEDTIME (route: oral) Med Classific ation: Central Nervous System Agents multivitami n tablet 08-07 00:00: 00 Yes [id number] 1 tablet DAILY 1 tablet DAILY (route: oral) Med Classific ation: Electroly te Balance-N utritiona l Products mupirocin 2 % topical ointment 08-07 00:00: 00 Yes [id number] ANTI-INFECT CHRIS FOR LEG WOUNDS Per instruc tions 3 TIMES DAILY Per instructio ns 3 TIMES DAILY (route: topical) Med Classific ation: Dermatolo gical Nasal [place] (sodium chloride) 0.65 % aerosol 08-07 00:00: 00 Yes [id number] 1 spray EVERY 6 HOURS 1 spray EVERY 6 HOURS (route: nasal) Med Classific ation: Respirato ry Therapy Agents omeprazole 40 mg capsule,del ayed release 08-07 00:00: 00 Yes [id number] 1 capsule 2 TIMES DAILY 1 capsule 2 TIMES DAILY (route: oral) Med Classific ation: Gastroint estinal Therapy Agents sodium chloride 0.65 % nasal spray aerosol 08-07 00:00: 00 Yes [id number] FOR DRY NARES 1 spray EVERY 6 HOURS 1 spray EVERY 6 HOURS (route: nasal) Med Classific ation: Respirato ry Therapy Agents sucralfate 1 gram tablet 08-07 00:00: 00 Yes [id number] 1 tablet 4 TIMES DAILY 1 tablet 4 TIMES DAILY (route: oral) Med Classific ation: Gastroint estinal Therapy Agents tamsulosin 0.4 mg capsule 08-07 00:00: 00 Yes [id number] 1 capsule DAILY 1 capsule DAILY (route: oral) Med Classific ation: Genitouri nary Therapy thiamine HCl (vitamin B1) 100 mg tablet 08-07 00:00: 00 Yes [id number] 1 tablet DAILY 1 tablet DAILY (route: oral) Med Classific ation: Electroly te Balance-N utritiona l Products torsemide 20 mg tablet - 00:00: 00 Yes [id number] 1 tablet EVERY OTHER DAY 1 tablet EVERY OTHER DAY (route: oral) Med Classific ation: Cardiovas cular Therapy Agents Trelegy Ellipta 200 mcg-62.5 mcg-25 mcg powder for inhalation 08-07 00:00: 00 Yes [id number] 1 inhalat ion DAILY 1 inhalation DAILY (route: inhalation ) Med Classific ation: Respirato ry Therapy Agents venlafaxine 37.5 mg tablet 08-07 00:00: 00 Yes [id number] 1 tablet DAILY 1 tablet DAILY (route: oral) Med Classific ation: Central Nervous System Agents Vital Signs Vital Name Observation Time Observation Value Commen ts Pulse 2024-08-29 09:36:00.000 60 /min Pulse 2024-08-17 15:16:00.000 62 /min Pulse 2024-08-07 18:23:00.000 90 /min O2 Saturation (%) 2024-08-17 15:16:00.000 96 % O2 Saturation (%) 2024-08-07 18:23:00.000 96 % Systolic Blood Pressure 2024-08-29 09:36:00.000 112 mm [Hg] Systolic Blood Pressure 2024-08-24 12:24:00.000 102 mm [Hg] Systolic Blood Pressure 2024-08-17 15:15:00.000 110 mm [Hg] Diastolic Blood Pressure 2024-08-29 09:36:00.000 70 mm [Hg] Diastolic Blood Pressure 2024-08-24 12:24:00.000 60 mm [Hg] Diastolic Blood Pressure 2024-08-17 15:15:00.000 60 mm [Hg] Plan of Treatment Planned Activity Planned Date Details Comments Future Scheduled Test SKILLED NU RSE TO EVALUATE PATIENT, IDENTIFY PRIMARY AND CO-MORBID CONDITIONS CODED PER CODING GUIDELINES, AND DEVELOP PATIENT SPECIFIC PLAN OF CARE THAT INCLUDES PATIENT GOAL FOR HOME HEALTH. [code = SKILLED NURSE TO EVALUATE PATIENT, IDENTIFY PRIMARY AND CO-MORBID CONDITIONS CODED PER CODING GUIDELINES, AND DEVELOP PATIENT SPECIFIC PLAN OF CARE THAT INCLUDES PATIENT GOAL FOR HOME HEALTH.] Future Scheduled Test SKILLED NU RSE TO PERFORM HOME SAFETY AND FALL ASSESSMENT AND PROVIDE INSTRUCTION TO IMPLEMENT HOME SAFETY AND FALL PREVENTION STRATEGIES. [code = SKILLED NURSE TO PERFORM HOME SAFETY AND FALL ASSESSMENT AND PROVIDE INSTRUCTION TO IMPLEMENT HOME SAFETY AND FALL PREVENTION STRATEGIES.] Future Scheduled Test SKILLED NU RSE FOR OBSERVATION AND ASSESSMENT OF PATIENTS PAIN LEVEL AND EFFECTIVENESS OF PAIN MANAGEMENT REGIMEN. SKILLED NURSE TO INSTRUCT PATIENT/CAREGIVER REGARDING PHARMACOLOGIC AND NON-PHARMACOLOGIC PAIN CONTROL MEASURES. SKILLED NURSE TO REPORT TO PHYSICIAN IF PAIN IS UNCONTROLLED WITH CURRENT PAIN MANAGEMENT REGIMEN. [code = SKILLED NURSE FOR OBSERVATION AND ASSESSMENT OF PATIENTS PAIN LEVEL AND EFFECTIVENESS OF PAIN MANAGEMENT REGIMEN. SKILLED NURSE TO INSTRUCT PATIENT/CAREGIVER REGARDING PHARMACOLOGIC AND NON-PHARMACOLOGIC PAIN CONTROL MEASURES. SKILLED NURSE TO REPORT TO PHYSICIAN IF PAIN IS UNCONTROLLED WITH CURRENT PAIN MANAGEMENT REGIMEN.] Future Scheduled Test SKILLED NU RSE TO ASSESS PATIENT'S SKIN INTEGRITY AND INSTRUCT PATIENT/CAREGIVER ON MEASURES TO PREVENT PRESSURE ULCERS. [code = SKILLED NURSE TO ASSESS PATIENT'S SKIN INTEGRITY AND INSTRUCT PATIENT/CAREGIVER ON MEASURES TO PREVENT PRESSURE ULCERS.] Future Scheduled Test PATIENT SEWELL S A RISK OF HOSPITALIZATION AND ED USE. SKILLED NURSE TO ESTABLISH SUPPORT MEASURES TO MINIMIZE RISK OF HOSPITALIZATION AND ED USE, AND INSTRUCT PATIENT/CAREGIVER ON METHODS TO REDUCE AVOIDABLE HOSPITALIZATION AND ED USE. [code = PATIENT HAS A RISK OF HOSPITALIZATION AND ED USE. SKILLED NURSE TO ESTABLISH SUPPORT MEASURES TO MINIMIZE RISK OF HOSPITALIZATION AND ED USE, AND INSTRUCT PATIENT/CAREGIVER ON METHODS TO REDUCE AVOIDABLE HOSPITALIZATION AND ED USE.] Future Scheduled Test SKILLED NU RSE TO PROVIDE INSTRUCTION TO PATIENT/CAREGIVER RELATED TO DISCHARGE PLANNING. [code = SKILLED NURSE TO PROVIDE INSTRUCTION TO PATIENT/CAREGIVER RELATED TO DISCHARGE PLANNING.] Future Scheduled Test SKILLED NU RSE TO O/A OF PATIENTS MENTAL/BEHAVIORAL STATUS, ASSESS VITAL SIGNS WEEKLY ALLOW 2 PRNS FOR MEDICATION MANAGEMENT. [code = SKILLED NURSE TO O/A OF PATIENTS MENTAL/BEHAVIORAL STATUS, ASSESS VITAL SIGNS WEEKLY ALLOW 2 PRNS FOR MEDICATION MANAGEMENT.] Future Scheduled Test SKILLED NU RSE WILL MAINTAIN SITUATIONAL AWARENESS FOR SAFETY AND WILL NOTIFY CLINICAL DYNAMITE CARTRIDGE CRIMPER AND PHYSICIAN/PROVIDER WITH ANY CHANGE IN CONDITION. [code = SKILLED NURSE WILL MAINTAIN SITUATIONAL AWARENESS FOR SAFETY AND WILL NOTIFY CLINICAL DYNAMITE CARTRIDGE CRIMPER AND PHYSICIAN/PROVIDER WITH ANY CHANGE IN CONDITION.] Future Scheduled Test SKILLED NU RSE FOR O/A OF GENERAL HEALTH STATUS OF PAIN, CARDIAC, RESPIRATORY, GASTROINTESTINAL, GENITOURINARY, SKIN, NEUROLOGIC, ENDOCRINE SYSTEMS TO IDENTIFY CHANGES ASSOCIATED WITH EXACERBATION FOR EARLY INTERVENTION OF COMPLICATIONS [code = SKILLED NURSE FOR O/A OF GENERAL HEALTH STATUS OF PAIN, CARDIAC, RESPIRATORY, GASTROINTESTINAL, GENITOURINARY, SKIN, NEUROLOGIC, ENDOCRINE SYSTEMS TO IDENTIFY CHANGES ASSOCIATED WITH EXACERBATION FOR EARLY INTERVENTION OF COMPLICATIONS ] Future Scheduled Test SKILLED NU RSE TO REVIEW PATIENT MEDICATIONS. INSTRUCT PATIENT/CAREGIVER ON MONITORING OF EFFECTIVENESS, ADVERSE DRUG REACTIONS, SIDE EFFECTS OF ALL MEDICATIONS (PRESCRIPTION/-OTC), AND HOW AND WHEN TO REPORT PROBLEMS. [code = SKILLED NURSE TO REVIEW PATIENT MEDICATIONS. INSTRUCT PATIENT/CAREGIVER ON MONITORING OF EFFECTIVENESS, ADVERSE DRUG REACTIONS, SIDE EFFECTS OF ALL MEDICATIONS (PRESCRIPTION/-OTC), AND HOW AND WHEN TO REPORT PROBLEMS.] Future Scheduled Test SKILLED NU RSE TO ADMINISTER MEDICATIONS AND PRE-POUR MEDICATIONS WEEKLY MEDICATION LIST. [code = SKILLED NURSE TO ADMINISTER MEDICATIONS AND PRE-POUR MEDICATIONS WEEKLY MEDICATION LIST.] Future Scheduled Test SKILLED NU RSE FOR O/A AND SKILLED TEACHING RELATED TO MANAGEMENT OF DEPRESSIVE SYMPTOMS AND/OR DEPRESSION. SN TO REPORT SIGNIFICANT CHANGE IN DEPRESSIVE SYMPTOMS TO CLINICAL PROVIDER FOR EARLY INTERVENTION. [code = SKILLED NURSE FOR O/A AND SKILLED TEACHING RELATED TO MANAGEMENT OF DEPRESSIVE SYMPTOMS AND/OR DEPRESSION. SN TO REPORT SIGNIFICANT CHANGE IN DEPRESSIVE SYMPTOMS TO CLINICAL PROVIDER FOR EARLY INTERVENTION.] Future Scheduled Test SKILLED NU RSE FOR O/A AND SKILLED TEACHING OF COPING SKILLS TO MANAGE ANXIETY AND MAINTAIN SAFETY. [code = SKILLED NURSE FOR O/A AND SKILLED TEACHING OF COPING SKILLS TO MANAGE ANXIETY AND MAINTAIN SAFETY.] Future Scheduled Test SKILLED NU RSE TO ASSESS PATIENTS PSYCHOSOCIAL STATUS TO IDENTIFY POTENTIAL ISSUES THAT MAY COMPLICATE THE PROVISION OF THE PLAN OF CARE INCLUDING THE PATIENTS ABILITY TO ACCESS COMMUNITY RESOURCES AND PSYCHOSOCIAL SUPPORT SERVICES. [code = SKILLED NURSE TO ASSESS PATIENTS PSYCHOSOCIAL STATUS TO IDENTIFY POTENTIAL ISSUES THAT MAY COMPLICATE THE PROVISION OF THE PLAN OF CARE INCLUDING THE PATIENTS ABILITY TO ACCESS COMMUNITY RESOURCES AND PSYCHOSOCIAL SUPPORT SERVICES.] Future Scheduled Test SKILLED NU RSE FOR O/A OF RESPIRATORY SYSTEM TO IDENTIFY CHANGES ASSOCIATED WITH EXACERBATION AND TO PROVIDE SKILLED TEACHING ON MANAGEMENT OF COPD RESPIRATORY DISEASE PROCESS. [code = SKILLED NURSE FOR O/A OF RESPIRATORY SYSTEM TO IDENTIFY CHANGES ASSOCIATED WITH EXACERBATION AND TO PROVIDE SKILLED TEACHING ON MANAGEMENT OF COPD RESPIRATORY DISEASE PROCESS.] Future Scheduled Test SKILLED NU RSE TO INSTRUCT PATIENT/CAREGIVER ON COPD TO INCLUDE TEACHING AND SELF-MANAGEMENT RELATED TO COPD DISEASE PROCESS, SIGNS AND SYMPTOMS, AND COMPLICATIONS. [code = SKILLED NURSE TO INSTRUCT PATIENT/CAREGIVER ON COPD TO INCLUDE TEACHING AND SELF-MANAGEMENT RELATED TO COPD DISEASE PROCESS, SIGNS AND SYMPTOMS, AND COMPLICATIONS.] Future Scheduled Test OXYGEN VIA NASAL CANNULA) @ 2 LITERS CONTINUOUS). SKILLED NURSE FOR O/A AND SKILLED TEACHING OF SAFE OXYGEN USE IN THE HOME. [code = OXYGEN VIA NASAL CANNULA) @ 2 LITERS CONTINUOUS). SKILLED NURSE FOR O/A AND SKILLED TEACHING OF SAFE OXYGEN USE IN THE HOME.] Future Scheduled Test SKILLED NU RSE FOR O/A, TEACHING, AND MANAGEMENT CHF [code = SKILLED NURSE FOR O/A, TEACHING, AND MANAGEMENT CHF ] Future Scheduled Test SKILLED NU RSE FOR O/A, TEACHING AND SELF-MANAGEMENT RELATED TO HEART FAILURE. INSTRUCT PATIENT/CAREGIVER ON SIGNS AND SYMPTOMS OF EXACERBATION TO REPORT. WEIGHT TO BE OBTAINED WEEKLY AND WEIGHT GAIN OF 2 LBS OVERNIGHT OR 5 LBS IN 1 WEEK TO BE REPORTED TO PHYSICIAN. IF UNABLE TO WEIGH PATIENT, SKILLED NURSE TO OBTAIN MEASUREMENT OF CALVES IN CM AT EACH VISIT AND REPORT AN INCREASE OF 1 CM TO PHYSICIAN. [code = SKILLED NURSE FOR O/A, TEACHING AND SELF-MANAGEMENT RELATED TO HEART FAILURE. INSTRUCT PATIENT/CAREGIVER ON SIGNS AND SYMPTOMS OF EXACERBATION TO REPORT. WEIGHT TO BE OBTAINED WEEKLY AND WEIGHT GAIN OF 2 LBS OVERNIGHT OR 5 LBS IN 1 WEEK TO BE REPORTED TO PHYSICIAN. IF UNABLE TO WEIGH PATIENT, SKILLED NURSE TO OBTAIN MEASUREMENT OF CALVES IN CM AT EACH VISIT AND REPORT AN INCREASE OF 1 CM TO PHYSICIAN.] Future Scheduled Test SKILLED NU RSE FOR O/A, TEACHING RELATED TO CHRONES FOR EARLY IDENTIFICATION OF EXACERBATION OF DISEASE PROCESS. [code = SKILLED NURSE FOR O/A, TEACHING RELATED TO CHRONES FOR EARLY IDENTIFICATION OF EXACERBATION OF DISEASE PROCESS.] Future Scheduled Test SKILLED NU RSE FOR O/A AND SKILLED TEACHING RELATED TO SIGNS AND SYMPTOMS AND MANAGEMENT OF WEAKNESS [code = SKILLED NURSE FOR O/A AND SKILLED TEACHING RELATED TO SIGNS AND SYMPTOMS AND MANAGEMENT OF WEAKNESS ] Future Scheduled Test SKILLED NU RSE FOR O/A OF MUSCULOSKELETAL STATUS AND TEACHING ON MEASURES TO MANAGE OF WEAKNESS WITH ACTIVITY [code = SKILLED NURSE FOR O/A OF MUSCULOSKELETAL STATUS AND TEACHING ON MEASURES TO MANAGE OF WEAKNESS WITH ACTIVITY] Goal Patient Goal - P T WILL MAINTAIN RESP STATUS AND MANAGE DEPRESSION Goal Provider Goal - A PLAN OF CARE WILL BE ESTABLISHED THAT MEETS PATIENT'S PENITENTIARY NEEDS AND INCLUDES PATIENT GOAL FOR HOME HEALTH. Goal Provider Goal - PATIENT/CAREGIVER WILL VERBALIZE/DEMONSTRATE EFFECTIVE HOME SAFETY AND FALL PREVENTION STRATEGIES THROUGHOUT CERTIFICATION PERIOD. Goal Provider Goal - PATIENT/CAREGIVER WILL DEMONSTRATE UNDERSTANDING OF PHARMACOLOGIC AND NONPHARMACOLOGIC PAIN CONTROL MEASURES AND PATIENT WILL HAVE IMPROVEMENT IN PAIN INTERFERING WITH ACTIVITY EVIDENCED BY PAIN CONTROLLED AT LEVEL OF 2 OR LESS BY END OF CERTIFICATION PERIOD. Goal Provider Goal - PATIENT/CAREGIVER WILL VERBALIZE UNDERSTANDING OF PRESSURE ULCER PREVENTION BY END OF THE EPISODE. Goal Provider Goal - PATIENT WILL HAVE SUPPORT MEASURES ESTABLISHED TO PREVENT HOSPITALIZATION AND ED USE AND PATIENT/CAREGIVER WILL VERBALIZE/DEMONSTRATE METHODS TO REDUCE AVOIDABLE HOSPITALIZATION AND ED USE BY END OF EPISODE. Goal Provider Goal - PATIENT/CAREGIVER WILL VERBALIZE UNDERSTANDING OF DISCHARGE PLANNING INSTRUCTIONS BY DATE OF DISCHARGE. Goal Provider Goal - ALTERED MENTAL/BEHAVIORAL STATUS WILL BE IDENTIFIED PROMPTLY AND INTERVENTION INITIATED QUICKLY TO MINIMIZE ASSOCIATED RISKS THROUGHOUT CERTIFICATION PERIOD. Goal Provider Goal - PATIENT WILL REMAIN SAFE IN THE COMMUNITY AND WILL BE FREE OF DANGER TO SELF AND OTHERS THROUGHOUT THE CERTIFICATION PERIOD. Goal Provider Goal - CHANGE IN GENERAL HEALTH STATUS WILL BE IDENTIFIED AND REPORTED TO PHYSICIAN FOR PROMPT INTERVENTION TO MINIMIZE ASSOCIATED RISKS THROUGHOUT CERTIFICATION PERIOD. Goal Provider Goal - PATIENT/CAREGIVER WILL VERBALIZE UNDERSTANDING OF EDUCATION PROVIDED ON MEDICATIONS BY THE END OF THE CERTIFICATION PERIOD. Goal Provider Goal - PATIENT WILL COMPLY WITH MEDICATION WHEN SKILLED NURSE ADMINISTERS AND PRE-POURS MEDICATION THROUGHOUT CERTIFICATION PERIOD. Goal Provider Goal - PATIENT WILL REMAIN SAFE WITHOUT DECOMPENSATION IN DEPRESSIVE CONDITION, WHILE MAINTAINING OPTIMAL LEVEL OF MENTAL HEALTH AND WELL BEING THROUGHOUT CERTIFICATION PERIOD. Goal Provider Goal - PATIENT WILL BE ABLE TO PERFORM DAILY FUNCTIONS AND HAVE OPTIMAL IMPROVEMENT IN LEVEL OF ANXIETY THROUGHOUT CERTIFICATION PERIOD. Goal Provider Goal - PSYCHOSOCIAL NEEDS WILL BE IDENTIFIED AND PLAN IMPLEMENTED TO MINIMIZE RISK THROUGHOUT CERTIFICATION PERIOD. Goal Provider Goal - PATIENT/CAREGIVER WILL VERBALIZE/DEMONSTRATE MANAGEMENT OF COPD RESPIRATORY DISEASE PROCESS. CHANGES IN RESPIRATORY STATUS WILL BE IDENTIFIED AND REPORTED TO PHYSICIAN FOR PROMPT INTERVENTION THROUGHOUT THE CERTIFICATION PERIOD. Goal Provider Goal - PATIENT/CAREGIVER WILL VERBALIZE/DEMONSTRATE KNOWLEDGE AND MANAGEMENT OF COPD BY END OF EPISODE. Goal Provider Goal - PATIENT/CAREGIVER WILL VERBALIZE/DEMONSTRATE UNDERSTANDING OF SAFE OXYGEN USE IN THE HOME THROUGHOUT THE EPISODE. Goal Provider Goal - PATIENT/CAREGIVER WILL VERBALIZE/DEMONSTRATE MANAGEMENT OF CHF CARDIAC DISEASE PROCESS AND EXACERBATIONS WILL BE IDENTIFIED AND PROMPTLY REPORTED THROUGHOUT THE CERTIFICATION PERIOD. Goal Provider Goal - PATIENT/CAREGIVER WILL VERBALIZE/DEMONSTRATE KNOWLEDGE AND MANAGEMENT OF HEART FAILURE DISEASE PROCESS BY END OF EPISODE. Goal Provider Goal - EXACERBATIONS OF CHRONES GASTROINTESTINAL DISEASE WILL BE PROMPTLY IDENTIFIED AND INTERVENTIONS IMPLEMENTED TO MINIMIZE RISKS TO PATIENT BY END OF EPISODE. Goal Provider Goal - PATIENT/CAREGIVER WILL VERBALIZE UNDERSTANDING OF WEAKNESS MUSCULOSKELETAL DISEASE INCLUDING SIGNS AND SYMPTOMS, MANAGEMENT, AND PRESCRIBED TREATMENT REGIMEN BY END OF EPISODE. Goal Provider Goal - PATIENT/CAREGIVER WILL VERBALIZE/DEMONSTRATE ABILITY TO MANAGE WEAKNESS MUSCULOSKELETAL DISEASE WHILE MAINTAINING SAFETY THROUGHOUT THE EPISODE. Encounters Start Date/Time End Date/Time Encounter Type Admission Type [facility] Care Department Encounter ID Discharge Date Discharge Status Discharge Condition Discharge Reason Percent Goals Met 2024-08-07 00:00:00 2024-10-05 00:00:00 Outpatient LASHELL NASSAR [facility] [id number] 34.0 0
--- OUTSIDE RECORDS SUMMARY | 2024-09-18 17:44 | XMS_ITS | Clinical Summary ---
Author Organization [facility] Address [address] [place] [address] Phone Care Team Providers Care Calciner Operator Helper Name Role Phone Pablo Hansen MD Primary Care Provider [phone] Allergies Active Allergy Reactions Criticality Noted Date [...] (one) time each day 1 Active Genvoya [phone] MG per tablet Take 1 tablet by [...] Visit [facility] [address] [place] [phone] Chin Ortega MD [address] [place] [phone] Health Maintenance Due Date Last Done Comments [...] 07/16/2015, 02/13/2013, 02/13/2013, Additional history exists Insurance [facility] [address] [place] [address] [facility] ([id number]) [address] [place] [address] [facility] ([id number]) Care Teams Calciner Operator Helper Relationship Specialty Start Date End Date Pablo Hansen MD [address], [place] PCP - General Internal Medicine 02/13/21
--- OUTSIDE RECORDS SUMMARY | 2024-09-18 17:44 | XMS_ITS | Encounter Summary ---
Author Organization [facility] Address [address] [place] [address] Care Team Providers Care Orthopaedic Nurse Name Role Phone Pablo Hansen MD Primary Care Provider [phone] Reason for Visit * Reason Onset Date Comments Shortness of Breath 09/11/2024 Encounter Details Date Type Department Care Team (Late st Contact Info) Description 09/11/2024 Telephone [facility] - [facility] [address] [facility] [address] [place] [phone] Zeny Archer MD [address] [facility] [address] [place] [address] Shortness of Breath Social History Tobacco Use [...] EDT The patient is still admitted at [facility], will continue to monitor. * Susi Conner RN - 09/11/2024 1:17 PM EDT ACCESS : Please schedule pt for HFU Multiple [facility] admissions DC SUMMARY in media section of [facility]. Dx: SOB, fatigue, medication changes [...] Pt has had three hospital stay at [facility] DC SUMMARY are all in media section Labs from 08/24/24 scanned into media section Pt seeing pulmonary 09/18/24 Dr quintero in [place]. Telehealth with PCP 08/03/24 Spoke with sister Nataly states pt is SOB with exertion. SOB has been increasing since Travon and Jovany were dc'd at [facility] in pt stay 07/21/24-07/28/24 for abnormal kidney [...] sister Nataly states patient was seen at [facility] within the last few months for COPD and he was taken off of his Entresto and Farxiga. Patient has been having a harder time breathing ever since. He has to sit down all the time after walking Patient gave verbal consent to speak toNataly. Please call her at [phone] documented in this encounter Plan of Treatment Upcoming Encounters Date Type Department Care Team (Late st Contact Info) Description 09/27/2024 2:40 PM EDT Office Visit [facility] [address] [place] [address] Jennifer Morataya PA [address] [place] [address] 11/28/2024 1:45 PM EDT Office Visit [facility] [address] [place] [phone] Zeny Archer MD [address] [place] [address] documented as of this encounter Visit Diagnoses Not on filedocumented in this encounter Care Teams Orthopaedic Nurse Relationship Specialty Start Date End Date Pablo Hansen MD [address] [place] [address] PCP - General 07/03/15 documented as of this encounter
--- OUTSIDE RECORDS SUMMARY | 2024-09-18 17:44 | XMS_ITS | Clinical Summary ---
Author Organization Unknown Care Team Providers Care Business Continuity Planner Name Role Phone NII BAKER, SHEREE Unavailable Unavailable KLARISSA KINSEY, LASHELL Unavailable Unavailable Payers Payer Name Policy Type Policy Number Effective Date Expira tion Date [facility] [id number] MEDICAID [facility] [id number] MEDICARE - [place] - [facility] [id number] Problems Condition Name Condition Details Condition Category [...] 2022-05 00:00: 00 03-13 23:59 :00 No [id number] Per instruc tions TWICE A DAY FOR 7 DAYS Per instructio ns TWICE A DAY FOR 7 DAYS (route: oral) Med Classific ation: Central Nervous System Agents gabapentin 100 mg capsule 2022-05 00:00: 00 05-20 23:59 :00 No [id number] Per instruc tions 3 TIMES A DAY 30 DAYS Per instructio ns 3 TIMES A DAY 30 DAYS (route: oral) Med Classific ation: Central Nervous System Agents venlafaxine ER 37.5 mg capsule,ext ended release 24 hr 2022-05 00:00: 00 03-13 23:59 :00 No [id number] Per instruc tions [id number] DAYS Per instructio ns [id number] DAYS (route: oral) Med Classific ation: Central Nervous System Agents Ventolin HFA 90 mcg/actuati on aerosol inhaler 2022-05 00:00: 00 05-20 23:59 :00 No [id number] Per instruc tions EVERY 6 HOURS NEEDED Per instructio ns EVERY 6 HOURS NEEDED (route: inhalation ) Med Classific ation: Respirato ry Therapy Agents sucralfate 1 gram tablet 2022-05 00:00: 00 05-20 23:59 :00 No [id number] Per instruc tions 4 TIMES A DAY BEFORE MEALS AND BEDTIME Per instructio ns 4 TIMES A DAY BEFORE MEALS AND BEDTIME (route: oral) Med Classific ation: Gastroint estinal Therapy Agents clopidogrel 75 mg tablet 2022-05 00:00: 00 07-14 23:59 :00 No [id number] Per instruc tions EVERY DAY Per instructio ns EVERY DAY (route: oral) Med Classific ation: Hematolog ical Agents atorvastati n 40 mg tablet 2022-05 00:00: 00 05-20 23:59 :00 No [id number] 1 tablet BEDTIME 1 tablet BEDTIME (route: oral) Med Classific ation: Cardiovas cular Therapy Agents azathioprin e 50 mg tablet 2022-05 00:00: 00 04-10 23:59 :00 No [id number] 1 tablet DAILY 1 tablet DAILY (route: oral) Med Classific ation: Immunosup pressive Agents benzonatate 100 mg capsule 2022-05 00:00: 00 05-20 23:59 :00 No [id number] 1 capsule 3 TIMES DAILY 1 capsule 3 TIMES DAILY (route: oral) Med Classific ation: Respirato ry Therapy Agents cholecalcif kirill (vitamin D3) 50 mcg (2,000 unit) capsule 2022-05 00:00: 00 05-20 23:59 :00 No [id number] 1 capsule DAILY 1 capsule DAILY (route: oral) Med Classific ation: Electroly te Balance-N utritiona l Products clonidine HCl 0.1 mg tablet 2022-05 00:00: 00 07-14 23:59 :00 No [id number] 2 tablet BEDTIME 2 tablet BEDTIME (route: oral) Med Classific ation: Cardiovas cular Therapy Agents Anoro Ellipta 62.5 mcg-25 mcg/actuati on powder for inhalation 2022-05 00:00: 00 05-20 23:59 :00 No [id number] 1 inhalat ion DAILY 1 inhalation DAILY (route: inhalation ) Med Classific ation: Respirato ry Therapy Agents gabapentin 100 mg capsule 2022-05 00:00: 00 05-20 23:59 :00 No [id number] 2 capsule 3 TIMES DAILY 2 capsule 3 TIMES DAILY (route: oral) Med Classific ation: Central Nervous System Agents Lasix 20 mg tablet 2022-05 00:00: 00 07-14 23:59 :00 No [id number] 1 tablet DAILY 1 tablet DAILY (route: oral) Med Classific ation: Cardiovas cular Therapy Agents Levo-T 50 mcg tablet 2022-05 00:00: 00 05-20 23:59 :00 No [id number] 1 tablet DAILY 1 tablet DAILY (route: oral) Med Classific ation: Endocrine metoprolol succinate ER 25 mg tablet,exte nded release 24 hr 2022-05 00:00: 00 05-20 23:59 :00 No [id number] 1 tablet DAILY 1 tablet DAILY (route: oral) Med Classific ation: Cardiovas cular Therapy Agents Miralax 17 gram/dose oral powder 2022-05 00:00: 00 05-20 23:59 :00 No [id number] 17 gram DAILY 17 gram DAILY (route: oral) Med Classific ation: Gastroint estinal Therapy Agents mirtazapine 45 mg tablet 2022-05 00:00: 00 05-20 23:59 :00 No [id number] 1 tablet BEDTIME 1 tablet BEDTIME (route: oral) Med Classific ation: Central Nervous System Agents Multivitami n 50 Plus tablet 2022-05 00:00: 00 05-20 23:59 :00 No [id number] 1 tablet DAILY 1 tablet DAILY (route: oral) Med Classific ation: Electroly te Balance-N utritiona l Products omeprazole 40 mg capsule,del ayed release 2022-05 00:00: 00 05-20 23:59 :00 No [id number] 1 capsule 2 TIMES DAILY 1 capsule 2 TIMES DAILY (route: oral) Med Classific ation: Gastroint estinal Therapy Agents OXYGEN 2022-05 00:00: 00 05-20 23:59 :00 No [id number] 2 Liter DAILY 2 Liter DAILY (route: Oxygen) Med Classific ation: Medical Oxygen pregabalin 100 mg capsule 2022-05 00:00: 00 03-13 23:59 :00 No [id number] 1 capsule 2 TIMES DAILY 1 capsule 2 TIMES DAILY (route: oral) Med Classific ation: Central Nervous System Agents sucralfate 1 gram tablet 2022-05 00:00: 00 03-13 23:59 :00 No [id number] 1 g 3 TIMES DAILY 1 g 3 TIMES DAILY (route: oral) Med Classific ation: Gastroint estinal Therapy Agents tamsulosin 0.4 mg capsule 2022-05 00:00: 00 05-20 23:59 :00 No [id number] 1 capsule DAILY 1 capsule DAILY (route: oral) Med Classific ation: Genitouri nary Therapy venlafaxine 37.5 mg tablet 2022-05 00:00: 00 05-20 23:59 :00 No [id number] 2 tablet DAILY 2 tablet DAILY (route: oral) Med Classific ation: Central Nervous System Agents aspirin 81 mg tablet,zach yed release 07-14 00:00: 00 05-20 23:59 :00 No [id number] 1 tablet DAILY 1 tablet DAILY (route: oral) Med Classific ation: Hematolog ical Agents doxycycline hyclate 100 mg capsule 07-14 00:00: 00 03-13 23:59 :00 No [id number] 1 capsule 2 TIMES DAILY 1 capsule 2 TIMES DAILY (route: oral) Med Classific ation: Anti-Infe ctive Agents Entresto 49 mg-51 mg tablet 07-14 00:00: 00 05-20 23:59 :00 No [id number] 1 tablet 2 TIMES DAILY 1 tablet 2 TIMES DAILY (route: oral) Med Classific ation: Cardiovas cular Therapy Agents Farxiga 10 mg tablet 2-15 00:00: 00 05-20 23:59 :00 No [id number] 1 tablet DAILY 1 tablet DAILY (route: oral) Med Classific ation: Endocrine spironolact one 25 mg tablet 2-15 00:00: 00 03-13 23:59 :00 No [id number] 1 tablet DAILY 1 tablet DAILY (route: oral) Med Classific ation: Cardiovas cular Therapy Agents thiamine HCl (vitamin B1) 100 mg tablet - 00:00: 00 05-20 23:59 :00 No [id number] 1 tablet DAILY 1 tablet DAILY (route: oral) Med Classific ation: Electroly te Balance-N utritiona l Products torsemide 20 mg tablet - 00:00: 00 04-10 23:59 :00 No [id number] 2 tablet 2 TIMES DAILY 2 tablet 2 TIMES DAILY (route: oral) Med Classific ation: Cardiovas cular Therapy Agents Trelegy Ellipta 200 mcg-62.5 mcg-25 mcg powder for inhalation 3-07 00:00: 00 05-20 23:59 :00 No [id number] 1 inhalat ion DAILY 1 inhalation DAILY (route: inhalation ) Med Classific ation: Respirato ry Therapy Agents clonazepam 1 mg tablet 2023-05 0-15 00:00: 00 05-20 23:59 :00 No [id number] for anxiety 1 tablet 2 TIMES DAILY 1 tablet 2 TIMES DAILY (route: oral) Med Classific ation: Central Nervous System Agents mupirocin 2 % topical ointment 2023-05 0-15 00:00: 00 05-20 23:59 :00 No [id number] 1 application 3 times a day for leg sores Per instruc tions 3 TIMES DAILY Per instructio ns 3 TIMES DAILY (route: topical) Med Classific ation: Dermatolo gical ondansetron 4 mg disintegrat ing tablet 2023-05 0-15 00:00: 05-20 23:59 :00 No [id number] nusea and vomiting 1 tablet EVERY 6 HOURS 1 tablet EVERY 6 HOURS (route: oral) Med Classific ation: Gastroint estinal Therapy Agents azathioprin e 50 mg tablet 2023-05 00:00: 00 05-20 23:59 :00 No [id number] 1 tablet BEDTIME 1 tablet BEDTIME (route: oral) Med Classific ation: Immunosup pressive Agents Genvoya 150 mg-150 mg-200 mg-10 mg tablet 2023-05 00:00: 00 05-20 23:59 :00 No [id number] 1 tablet EVERY AM 1 tablet EVERY AM (route: oral) Med Classific ation: Anti-Infe ctive Agents torsemide 20 mg tablet 2023-05 00:00: 00 05-20 23:59 :00 No [id number] 1 tablet EVERY AM 1 tablet EVERY AM (route: oral) Med Classific ation: Cardiovas cular Therapy Agents albuterol sulfate 2.5 mg/3 mL (0.083 %) solution for nebulizatio n 08-07 00:00: 00 Yes [id number] FOR SOB 2.5 mg EVERY 6 HOURS 2.5 mg EVERY 6 HOURS (route: inhalation ) Med Classific ation: Respirato ry Therapy Agents albuterol sulfate HFA 90 mcg/actuati on aerosol inhaler 08-07 00:00: 00 Yes [id number] FOR SHORTNESS OF BREATH 2 puff EVERY 6 HOURS 2 puff EVERY 6 HOURS (route: inhalation ) Med Classific ation: Respirato ry Therapy Agents aspirin 81 mg tablet,zach yed release 08-07 00:00: 00 Yes [id number] 1 tablet DAILY 1 tablet DAILY (route: oral) Med Classific ation: Hematolog ical Agents atorvastati n 40 mg tablet 08-07 00:00: 00 Yes [id number] 1 tablet BEDTIME 1 tablet BEDTIME (route: oral) Med Classific ation: Cardiovas cular Therapy Agents azathioprin e 50 mg tablet 08-07 00:00: 00 Yes [id number] 1 tablet DAILY 1 tablet DAILY (route: oral) Med Classific ation: Immunosup pressive Agents benzonatate 100 mg capsule - 00:00: 00 Yes [id number] FOR COUGH 1 capsule 3 TIMES DAILY 1 capsule 3 TIMES DAILY (route: oral) Med Classific ation: Respirato ry Therapy Agents cholecalcif kirill (vitamin D3) 50 mcg (2,000 unit) capsule - 00:00: 00 Yes [id number] 1 capsule DAILY 1 capsule DAILY (route: oral) Med Classific ation: Electroly te Balance-N utritiona l Products clonazepam 1 mg tablet 08-07 00:00: 00 Yes [id number] FOR ANXIETY 1 tablet 2 TIMES DAILY 1 tablet 2 TIMES DAILY (route: oral) Med Classific ation: Central Nervous System Agents dronabinol 10 mg capsule 08-07 00:00: 00 Yes [id number] FOR NAUSEA 1 capsule 2 TIMES DAILY 1 capsule 2 TIMES DAILY (route: oral) Med Classific ation: Gastroint estinal Therapy Agents ferrous sulfate 325 mg (65 mg iron) tablet 08-07 00:00: 00 Yes [id number] 1 tablet DAILY 1 tablet DAILY (route: oral) Med Classific ation: Electroly te Balance-N utritiona l Products gabapentin 100 mg capsule 08-07 00:00: 00 Yes [id number] 2 capsule 3 TIMES DAILY 2 capsule 3 TIMES DAILY (route: oral) Med Classific ation: Central Nervous System Agents Genvoya 150 mg-150 mg-200 mg-10 mg tablet 08-07 00:00: 00 Yes [id number] 1 tablet DAILY 1 tablet DAILY (route: oral) Med Classific ation: Anti-Infe ctive Agents levothyroxi ne 50 mcg tablet 08-07 00:00: 00 Yes [id number] 1 tablet DAILY 1 tablet DAILY (route: oral) Med Classific ation: Endocrine metoprolol succinate ER 25 mg tablet,exte nded release 24 hr 08-07 00:00: 00 Yes [id number] 1 tablet DAILY 1 tablet DAILY (route: oral) Med Classific ation: Cardiovas cular Therapy Agents mirtazapine 45 mg tablet - 00:00: 00 Yes [id number] 1 tablet BEDTIME 1 tablet BEDTIME (route: oral) Med Classific ation: Central Nervous System Agents multivitami n tablet 08-07 00:00: 00 Yes [id number] 1 tablet DAILY 1 tablet DAILY (route: oral) Med Classific ation: Electroly te Balance-N utritiona l Products mupirocin 2 % topical ointment 08-07 00:00: 00 Yes [id number] ANTI-INFECT CHRIS FOR LEG WOUNDS Per instruc tions 3 TIMES DAILY Per instructio ns 3 TIMES DAILY (route: topical) Med Classific ation: Dermatolo gical Nasal [place] (sodium chloride) 0.65 % aerosol 08-07 00:00: 00 Yes [id number] 1 spray EVERY 6 HOURS 1 spray EVERY 6 HOURS (route: nasal) Med Classific ation: Respirato ry Therapy Agents omeprazole 40 mg capsule,del ayed release 08-07 00:00: 00 Yes [id number] 1 capsule 2 TIMES DAILY 1 capsule 2 TIMES DAILY (route: oral) Med Classific ation: Gastroint estinal Therapy Agents sodium chloride 0.65 % nasal spray aerosol 08-07 00:00: 00 Yes [id number] FOR DRY NARES 1 spray EVERY 6 HOURS 1 spray EVERY 6 HOURS (route: nasal) Med Classific ation: Respirato ry Therapy Agents sucralfate 1 gram tablet 08-07 00:00: 00 Yes [id number] 1 tablet 4 TIMES DAILY 1 tablet 4 TIMES DAILY (route: oral) Med Classific ation: Gastroint estinal Therapy Agents tamsulosin 0.4 mg capsule 08-07 00:00: 00 Yes [id number] 1 capsule DAILY 1 capsule DAILY (route: oral) Med Classific ation: Genitouri nary Therapy thiamine HCl (vitamin B1) 100 mg tablet 08-07 00:00: 00 Yes [id number] 1 tablet DAILY 1 tablet DAILY (route: oral) Med Classific ation: Electroly te Balance-N utritiona l Products torsemide 20 mg tablet - 00:00: 00 Yes [id number] 1 tablet EVERY OTHER DAY 1 tablet EVERY OTHER DAY (route: oral) Med Classific ation: Cardiovas cular Therapy Agents Trelegy Ellipta 200 mcg-62.5 mcg-25 mcg powder for inhalation 08-07 00:00: 00 Yes [id number] 1 inhalat ion DAILY 1 inhalation DAILY (route: inhalation ) Med Classific ation: Respirato ry Therapy Agents venlafaxine 37.5 mg tablet 08-07 00:00: 00 Yes [id number] 1 tablet DAILY 1 tablet DAILY (route: [...] AWARENESS FOR SAFETY AND WILL NOTIFY CLINICAL TRUCK TRAILER MECHANIC AND PHYSICIAN/PROVIDER WITH ANY CHANGE IN CONDITION. [code = SKILLED NURSE WILL MAINTAIN SITUATIONAL AWARENESS FOR SAFETY AND WILL NOTIFY CLINICAL TRUCK TRAILER MECHANIC AND PHYSICIAN/PROVIDER WITH ANY CHANGE IN CONDITION.] [...] CARE WILL BE ESTABLISHED THAT MEETS PATIENT'S DETENTION NEEDS AND INCLUDES PATIENT GOAL FOR HOME [...] End Date/Time Encounter Type Admission Type Attending [facility] Care Facility Care Department Encounter ID Discharge Date Discharge Status Discharge Condition Discharge Reason Percent Goals Met 2024-08-07 00:00:00 2024-10-05 00:00:00 Outpatient LASHELL NASSAR [facility] [id number] 34.0 0
--- OUTSIDE RECORDS SUMMARY | 2024-09-18 17:44 | XMS_ITS | Clinical Summary ---
Author Organization [address] [place] [address] Address [address] [place] [address] Phone Care Team Providers Care Electrical Designer Name Role Phone Pablo Hansen MD Primary Care Provider [phone] Encounters Date Type Department Care Team Description 09/11/2024 Telephone [facility] [address] [facility] [address] [place] [phone] Zeny Archer MD Shortness of Breath 08/24/2024 Telephone [facility] - [facility] [address] [facility] [address] [place] [address] Zeny Archer MD out of oxygen (SOB ) 08/18/2024 Telephone [facility] - [facility] [address] [facility] [address] [place] [phone] Zeny Archer MD called pt to r/s [...] artery disease); COMMENT: -NSTEMI 2017 Crohn's colitis ([facility] V24 , [facility] V28) DX:Crohn's colitis (HCC) Crohn's disease ([facility] V24 , [facility] V28) DX:Crohn's disease (HCC); CO MMENT: dx'd 06/2015 Depression DX:Depression Emphysema/COPD ([facility] V24, [facility] V28) DX:Emphysema/COPD ([facility]) Fatigue DX:Fatigue GERD (gastroesophageal reflux disease) DX:GERD (gastroesophageal reflux disease) H/O small bowel obstruction DX:H /O small bowel obstruction; COMMENT: Recurrent Hyperlipidemia DX:Hyperlipidemi a Hypertension DX:Hypertension Hypothyroidism DX:Hypothyroidis m Peripheral neuropathy DX:Periphe ral neuropathy Purpura ([facility] V24) DX:Purpura ([facility]) HIV (human immunodeficiency virus infection) ([facility] V24, [facility] V28) DX:HIV (human im munodeficiency virus infection) ([facility]) Dental infection DX:Dental infec tion Kidney disease, chronic, sta ge III (GFR 30-59 ml/min) ([facility] V24, [facility] V28) DX:Kidney dis ease, chronic, stage III (GFR 30-59 ml/min) ([facility]) COPD with emphysema ([facility] V24, 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 V24, [facility] V28) DX:Non-pressure chronic ulce r of left ankle with fat layer exposed ([facility]) Chronic kidney disease (CKD) , stage II (mild) DX:Chronic kidney disease (C KD), stage II (mild) CKD (chronic kidney disease) DX: CKD (chronic kidney disease) Covid-19 DX:COVID-19 Abdominal pain DX:Abdominal bob n Anemia DX:Anemia Hematuria DX:Hematuria Immunocompromised state (CMS/[facility] V24) DX:Immunocompromised state (HCC) Legionella infection (CMS/HC [...] Description 09/27/2024 2:40 PM EDT Office Visit [facility] - [facility] [address] [facility] [address] [place] [phone] Jennifer Morataya PA [address] [place] [address] 11/28/2024 1:45 PM EDT Office Visit [facility] - [facility] [address] [place] [phone] Zeny Archer MD [address] [place] [address] Health Maintenance Due Date Last Done Comments [...] ID:Not on file Type:Not on file Address: [place] [address] [address] [address] Care Teams Electrical Designer Relationship Specialty Start Date End Date Pablo Hansen MD [address] [place] [address] PCP - General 07/03/15
--- OUTSIDE RECORDS SUMMARY | 2024-09-18 17:45 | XMS_ITS | Encounter Summary ---
Author Organization [facility] Address [address] [place] [address] Phone Care Team Providers Care Hose Turner Name Role Phone Pablo Hansen MD Primary Care Provider [phone] Encounter Details Date Type Department Care Team (Late Contact Info) Description 11/17/2023 Telephone [facility] [address] [place] [phone] Chin Ortega MD [address] [facility] [address] [place] [id number] Social History Tobacco Use Types Packs/Day Years [...] Upcoming Encounters Date Type Department Care Team ([facility] Contact Info) Description 10/03/2024 10:45 AM EDT Office Visit [facility] [address] [phone] Chin Ortega MD [address] [phone] documented as of this encounter Visit Diagnoses Not on filedocumented in this encounter Care Teams Hose Turner Relationship Specialty Start Date End Date Pablo Hansen MD [facility] [place], [place] PCP - General Internal Medicine 02/13/21 documented as of this encounter
--- OUTSIDE RECORDS SUMMARY | 2024-09-18 17:45 | XMS_ITS | Data Portability ---
Author Organization [facility] [employer] Address [address] [place] [phone] Care Team Providers Care Illustrator Set Name Role Phone HIM CCA OTHER MILLY JUAN Primary Care Provider [phone] Assessment Encounter Date Assessment Date Assessment LastModified by Organization Details LastModified Time 08/16/2021 08/16/2021 As noted, 61 yom with complex PMH including well-controlled retroviral infections, Crohn's on biologic, and mood disorders, among others. Called to evaluate would on lateral malleolus. Apparently appeared as a spontaneous red or purplish lesion that expanded to an angry looking ulcer. Had visit earlier this month to evaluate, since then, has enlarged and not improved. Was seen by derm recently who rx'ed amoxicillin, which did not have much effect. Has been very itchy and painful, and he finds the only way to relieve this is with a sticky occlusive dressing, the removal of which seems to remove new granulation tissue. Photos obtained - no e/o surrounding cellulitis or purulent drainage Impression - idiopathic ulcer without clear inciting cause, no e/o infection but not healing due to suboptimal wound care. Needs de facto wound care, better dressings, to allow healing - will mention to his primary team. Discussed neosporin or similar ointment and gauze or bandage, which would cause less trauma and not erode granulation tissue. He is clearly very bothered by the discomfort but says he will try this. Recovery Assistant left several 4x4 gauzes and we instructed on wound care. Counseled on SSTI red flags. Lastly, in context of IBD and the story of spontaneous or perhaps post-traumatic (given location) lesion appearance, I wonder about pyoderma gangrenosum or a similar skin manifestation of IBD (or perhaps as a consequence of his infection history or biologic agents). May be worth re-evaluation but given he saw derm recently probably not high yield. [email or web address] Not available 08/16/2021 20:39:00 08/25/2023 08/25/2023 I provided real -time medical direction via phone for this encounter, and was available for additional phone based assistance as needed. I have reviewed and agree with the Assessment and Plan as documented by the Recovery Assistant. We discussed the diagnostic uncertainty of home visits and the risk associated with this. In this case the patient and I felt this to be an acceptable and reasonable amount of risk given the benefit of avoiding an ED visit. The patient and his spouse given the opportunity to ask questions. Advised if develops CP/severe SOB/turning blue/uncontrolled n/v/d or black/bloody emesis or stool/uncontrolle d epistaxis, yang hematuria, severe abdominal pain, AMS/ syncope/fever> 100.3 to call 911- verbalized understanding of instruction to the medic [email or web address] Not available 08/25/2023 19:21:56 09/13/2023 09/13/2023 I have reviewed and agree with the assessment and plan as documented by the inspection clerk. I provided real-time medical direction for this encounter and was immediately available to provide additional phone-based assistance as needed. 63M with history of HIV, HTN, prev anemia, presenting with weakness, lethargy. Pt states when he feels like this he requires a transfusion. Denies any chest pain or SOB. No N/V/D. Intermittent abdominal pain. O/E: Vitals reveal no acute findings, pt on baseline 2L. Appears weak, fatigued. Abdomen reveals pain, bruising. Hgb 7.5, Hct 22. Overall pt with anemia, abdominal pain, abdominal bruising, weakness. Concern for intraabdominal bleeding, symptomatic anemia. Pt states baseline is typically 8.5, and when it is this low, he becomes symptomatic, requiring transfusion. Pt requesting to go to ED, will arrange for transfer. [email or web address] Not available 09/13/2023 20:41:39 09/28/2023 09/28/2023 I provided real -time medical direction via phone for this encounter and was available for additional phone-based assistance as needed. I have reviewed and agree with the Assessment and Plan as documented by the Recovery Assistant. Patient given the opportunity to ask questions. Our service contacted for an assessment of: fatigue and malaise with h/o anemia As per above, patient with Remicade infusion on Tuesday for Crohn's. Also has a h/o HIV disease and HTN. Also receives blood transfusions for anemia. Calls with non-specific complaints of fatigue and malaise. Is wondering if he needs a transfusion. Per inspection clerk on the scene, VSS and he is in his usual state of health. POC testing shows an H&H of 8.9 & 26. Cr 1.54. COVID and Flu are negative. Impression and plan: Fatigue and malaise after Remicade infusion earlier this week. POCT is reassuring. May have another viral illness that we cannot test for however differential diagnosis is broad. We discussed the diagnostic uncertainty of home visits and the risk associated with this. In this case, the patient and I felt this to be an acceptable and reasonable amount of risk given the benefit of avoiding an ED visit. We discussed the need to seek care urgently/emergent ly in the setting of any new or worsening serious symptoms, particularly fever chills. Red flags discussed and encouraged f/u with his team this week by phone. [email or web address] Not available 09/28/2023 14:54:20 03/05/2024 03/05/2024 service called for SOB found 58 remi with hx COPD on 2Lo2, CVS with L hemiparesis, DVT/PE s/p ICV MALLY, T2DM, fibromyalgia, GERD, CHF, Crohns c/o dizziness and SOB several days reports continued PO intake VS BP 80s/40s HR 68 O2sat 97%->82% while talking with 2LO2 #New O2 requirement, hypotension SOB and desat on minimal exertion normally expected to have elev BP given HTN very ill and requires higher level of care and monitoring -refer ED via EMS [email or web address] Not available 03/05/2024 21:05:44 Plan of Treatment Reminders Order Date Submit Date Provider Last Modified By Organization Details Last Modified Time Details Appointments None recorded. Lab rapid flu (A+B) 2023 024 [place] [id number] Main - [facility], [address] [place] [address], [phone] 14:54:41 rapid SARS CoV 2 Ag, QL IA, respiratory specimen [address], [address] [place] [address], [id number] 4 14:54:40 cmp, whole blood + carolin 2023 024 [email or web address] [facility], [address] [place] [address], [phone] 4 08:25:27 BMP, serum or plasma 2023 024 [email or web address] [facility], [address] [place] [address], [id number] 4 20:41:45 BMP, serum or plasma 2023 024 [email or web address] 0 [facility], [address] [place] [address], [id number] 4 19:23:38 rapid SARS CoV 2 Ag, QL IA, respiratory specimen 2023 024 [email or web address] 0 [facility], [address] [place] [address], [id number] 4 19:23:40 rapid flu (A+B) 2023 024 [email or web address] 0 [facility], [address] [place] [address], [phone] 4 19:23:42 Referral None recorded. Procedures None recorded. Surgeries None recorded. Imaging None recorded. Medication Orders None recorded. Patient TargetsNo targets recorded. Patient InstructionsNo instructions recorded. Reason for Referral None Reported. Results Created Date Observation Date Name Description Value Unit Range Abnormal Flag Note LastModifiedBy Organization Detail LastModifiedTime 08/25/1908/25/2023 BMP, serum or plasm a BUN 30 Not Available Main - [facility] [address], [phone] 08/25/2023 19:20:03 08/25/19 24 08/25/2023 BMP, serum or plasm a Ca Ionize d calciu m 1.08 Not Available Main - [facility] [address], [phone] 08/25/2023 19:20:03 08/25/19 24 08/25/2023 BMP, serum or plasm a CI- 105 Not Available Main - [facility] [address], [address] 08/25/2023 19:20:03 08/25/19 24 08/25/2023 BMP, serum or plasm a CRE 1.74(i ncreas ed from last labs I have needs to be follow ed patien t aware) Not Available Main - [facility] [address] [place] [address], [phone] 08/25/2023 19:20:03 08/25/19 24 08/25/2023 BMP, serum or plasm a GLU 89 Not Available Main - [facility] [address], [address] 08/25/2023 19:20:03 08/25/19 24 08/25/2023 BMP, serum or plasm a K+ 3.5 Not Available Main - [facility] [address], [address] [place] [address] 08/25/2023 19:20:03 08/25/19 24 08/25/2023 BMP, serum or plasm a Na+ 140 Not Available Main - [facility] [address], [address] [place] [address] 08/25/2023 19:20:03 08/25/19 24 08/25/2023 BMP, serum or plasm a tCO2 25 Not Available Main - [facility] [address], [address] 08/25/2023 19:20:03 08/25/19 24 08/25/2023 rapid flu (A+B) Flu negati ve Not Available Main - [facility] [address] [place] [address], [phone] 08/25/2023 19:20:06 08/25/19 24 08/25/2023 rapid SARS CoV 2 Ag, QL IA, respi rator y speci men rapid SARS CoV 2 Ag, QL IA, respiratory specimen negati ve Not Available Main - [facility] [address] [place] [address], [phone] 08/25/2023 19:20:04 09/13/19 24 09/13/2023 BMP, serum or plasm a BUN 23 Not Available Main - [facility] [address], [address] 09/13/2023 20:10:34 09/13/19 24 09/13/2023 BMP, serum or plasm a CRE 1.8 Not Available Main - [facility] [address], [address] 09/13/2023 20:10:34 09/13/19 24 09/13/2023 BMP, serum or plasm a K+ 3.7 Not Available Main - [facility] [address], [address] 09/13/2023 20:10:34 09/13/19 24 09/13/2023 BMP, serum or plasm a Na+ 146 Not Available Main - [facility] [address], [address] 09/13/2023 20:10:34 09/28/19 24 09/28/2023 rapid SARS CoV 2 Ag, QL IA, respi rator y speci men rapid SARS CoV 2 Ag, QL IA, respiratory specimen negati ve Not Available [facility] ed [address] [place] [address], [phone] 09/28/2023 14:41:42 09/28/19 24 09/28/2023 rapid flu (A+B) Flu negati ve Not Available [facility] ed [address] [place] [address], [phone] 09/28/2023 14:41:40 Result Notes None recorded. Medical Equipment None Reported. Allergies Allergen ID Allergen Name Allergen Category Reaction Reaction Severity Criticality Documentation Date Start Date Code Code System Note Provider Name and Address Organization Details Recorded Time 4794 Augmentin medicatio n Not available Not available Not available 08/25/2023 66243 2 RxNorm Kika Hurtado MD [address] [place] [address],[address], [place], [address] [facility] 14:29:38 Medications Name Sig Start Date Stop Date Status Note LastModified by Organization Details LastModified Time furosemide 40 mg tablet TAKE 1 TABLET BY MOUTH EVERY DAY active Not Available Not Available No t Available atorvastatin 40 mg tablet TAKE 1 TABLET BY MOUTH EVERYDAY AT BEDTIME active Not Available Not Available No t Available venlafaxine ER 37.5 mg capsule,exte nded release 24 hr TAKE 2 CAPSULES BY MOUTH EVERY DAY active Not Available Not Available No t Available clonidine HCl 0.1 mg tablet TAKE 2 TABLETS BY MOUTH DAILY AT BEDTIME active Not Available Not Available N ot Available prednisone 10 mg tablet active Not Available Not Available Not Available ibuprofen 800 mg tablet TAKE 1 TAB EVERY 6 HOURS NEEDED FOR PAIN active Not Available Not Available No t Available metoprolol succinate ER 50 mg tablet,exten ded release 24 hr TAKE 1 TABLET BY MOUTH EVERY DAY active Not Available Not Available No t Available sucralfate 1 gram tablet TAKE 1 TABLET BY MOUTH 4 TIMES A DAY BEFORE MEALS AND BEDTIME active Not Available Not Available No t Available clonazepam 1 mg tablet TAKE 1 TABLET BY MOUTH TWICE A DAY FOR 7 DAYS active Not Available Not Available No t Available azathioprine 50 mg tablet TAKE 1 TABLET BY MOUTH EVERY DAY active Not Available Not Available No t Available clopidogrel 75 mg tablet TAKE 1 TABLET BY MOUTH EVERY DAY active Not Available Not Available No t Available sulfamethoxa zole 800 mg-trimethop rim 160 mg tablet TAKE 1 TABLET BY MOUTH TWICE A DAY FOR 10 DAYS active Not Available Not Available No t Available omeprazole 40 mg capsule,zach yed release TAKE 1 CAPSULE BY MOUTH EVERY DAY active Not Available Not Available No t Available aspirin 81 mg tablet,delay ed release TAKE 1 TABLET BY MOUTH EVERY DAY active Not Available Not Available No t Available spironolacto ne 25 mg tablet TAKE 1 TABLET BY MOUTH EVERY DAY active Not Available Not Available No t Available amoxicillin 500 mg tablet TAKE 1 EVERY 6 HOURS UNTIL GONE active Not Available Not Available No t Available pantoprazole 20 mg tablet,delay ed release TAKE 1 TABLET BY MOUTH TWICE A DAY active Not Available Not Available No t Available triamcinolon e acetonide 0.025 % topical cream APPLY TO LEGS TWICE A DAY NEEDED FOR FLARES active Not Available Not Available No t Available tamsulosin 0.4 mg capsule TAKE 1 CAPSULE BY MOUTH EVERY DAY active Not Available Not Available No t Available benzonatate 100 mg capsule TAKE 1 CAPSULE BY MOUTH 3 TIMES A DAY NEEDED FOR COUGH active Not Available Not Available No t Available levothyroxin e 50 mcg tablet TAKE 1 TABLET BY MOUTH EVERY DAY active Not Available Not Available No t Available cephalexin 500 mg capsule TAKE 1 CAPSULE BY MOUTH 4 TIMES A DAY FOR 7 DAYS active Not Available Not Available N ot Available gabapentin 300 mg capsule TAKE 1 CAPSULE BY MOUTH 3 TIMES A DAY active Not Available Not Available Not Available omeprazole 20 mg capsule,zach yed release TAKE 1 CAPSULE BY MOUTH TWICE A DAY active Not Available Not Available No t Available mirtazapine 45 mg tablet TAKE 1 TABLET BY MOUTH EVERYDAY AT BEDTIME active Not Available Not Available No t Available dronabinol 10 mg capsule TAKE 1 CAPSULE BY MOUTH 2 TIMES A DAY NEEDED NAUSEA OR VOMITING active Not Available Not Available No t Available furosemide 20 mg tablet TAKE 1 TABLET BY MOUTH EVERY OTHER DAY OR DIRECTED BY CARDIOLOGIS T active Not Available Not Available No t Available gabapentin 100 mg capsule TAKE 1 CAPSULE BY MOUTH 3 TIMES A DAY active Not Available Not Available Not Available metoprolol succinate ER 25 mg tablet,exten ded release 24 hr TAKE 1 TABLET BY MOUTH EVERY DAY active Not Available Not Available No t Available methylpredni solone 4 mg tablets in a dose pack TAKE 6 TABLETS ON DAY 1 DIRECTED ON PACKAGE AND DECREASE BY 1 TAB EACH DAY FOR A TOTAL OF 6 DAYS active Not Available Not Available No t Available albuterol sulfate HFA 90 mcg/actuatio n aerosol inhaler INHALE 2 PUFFS 4 TIMES A DAY NEEDED FOR WHEEZING active Not Available Not Available No t Available ondansetron 4 mg disintegrati ng tablet TAKE 1 TABLET BY MOUTH EVERY 8 HOURS NEEDED FOR NAUSEA/VOMI TING active Not Available Not Available No t Available clotrimazole 1 % topical cream APPLY TOPICALLY 2 TIMES DAILY FOR 12 DAYS active Not Available Not Available Not Available oxycodone 5 mg tablet TAKE 1 TABLET BY MOUTH EVERY 6 HOURS NEEDED FOR PAIN X 3 DAYS active Not Available Not Available No t Available Stomach Relief 262 mg chewable tablet CHEW 2 TABLETS 4 TIMES A DAY NEEDED FOR DIARRHEA active Not Available Not Available No t Available Saline Nasal 0.65 % spray aerosol PUT 2 SPRAYS 4 TIMES A DAY IN EACH NOSTRIL, NEEDED FOR NASAL DRYNESS OR BLEEDING active Not Available Not Available No t Available cholestyrami ne (with sugar) 4 gram powder for susp in a packet MIX AND DRINK 1 PACKET TWICE A DAY NEEDED FOR DIARRHEA active Not Available Not Available No t Available cholecalcife rol (vitamin D3) 50 mcg (2,000 unit) capsule TAKE 1 CAPSULE BY MOUTH EVERY DAY active Not Available Not Available No t Available Incruse Ellipta 62.5 mcg/actuatio n powder for inhalation INHALE 1 PUFF BY MOUTH EVERY 24 HOURS. (DOSES SHOULD BE TAKEN 24 HOURS APART) active Not Available Not Available No t Available Genvoya 150 mg-150 mg-200 mg-10 mg tablet TAKE 1 TABLET BY MOUTH EVERY DAY WITH FOOD active Not Available Not Available No t Available Pain Relief (lidocaine) 4 % topical cream 1 APPLICATION TOPICALLY 2 TIMES A DAY NEEDED SKIN ULCER PAIN active Not Available Not Available No t Available Daily-Vick (with folic acid) 400 mcg tablet TAKE 1 TABLET BY MOUTH DAILY active Not Available Not Available Not Available Vitals Date Recorded Body weight Body temperature Heart rate Oxygen saturation Oxygen saturation in Arterial blood by Pulse oximetry Respiratory rate Systolic blood pressure Diastolic blood pressure Provider Name and Address Organization Details Last Updated DateTime 4 09547.9 36 g 99.6 [degF] 78 /min 96 % 96 % 16 /min 158 mm[Hg] 80 mm[Hg] Not Available [employer] [facility] 4 15:08:14 Date Recorded Body temperature Respiratory rate Body weight Heart rate Oxygen saturation Oxygen saturation in Arterial blood by Pulse oximetry Inhaled oxygen flow rate Systolic blood pressure Diastolic blood pressure Provider Name and Address Organization Details Last Updated DateTime 4 98.3 [degF] 18 /min 16861.5 28 g 82 /min 98 % 98 % 2 L/min 156 mm[Hg] 84 mm[Hg] Not Available [employer] 4 20:06:20 Date Recorded Body temperature Oxygen saturation Oxygen saturation in Arterial blood by Pulse oximetry Inhaled oxygen flow rate Respiratory rate Heart rate Body weight Systolic blood pressure Diastolic blood pressure Provider Name and Address Organization Details Last Updated DateTime 4 97.5 [degF] 95 % 95 % 2 L/min 16 /min 60 /min 37646.1 6 g 172 mm[Hg] 76 mm[Hg] Not Available [employer] 4 14:39:41 Date Recorded Oxygen saturation Oxygen saturation in Arterial blood by Pulse oximetry Inhaled oxygen flow rate Body temperature Respiratory rate Heart rate Oxygen saturation Oxygen saturation in Arterial blood by Pulse oximetry Inhaled oxygen flow rate Systolic blood pressure Diastolic blood pressure Systolic blood pressure Diastolic blood pressure Provider Name and Address Organization Details Last Updated DateTime 4 97 % 97 % 2 L/min 96.8 [degF] 18 /min 68 /min 82 % 82 % 2 L/min 84 mm[Hg] 58 mm[Hg] 77 mm[Hg] 50 mm[Hg] Not Available [employer] 4 21:04:11 Social History None recorded. Functional Status None recorded. Mental Status None recorded. Family History Nothing Reported. Medical History No medical history recorded. Past Encounters Encounter ID Performer Location Encounter Start Date Encounter Closed Date Diagnosis/Indication Diagnosis SNOMED-CT Code Diagnosis ICD10 Code Diagnosis Note [id number] Nas Valdez MD Main - [facility] [address] [place] [phone] 07/28/2021 08:28:10 01/28/2022 15:16:00 Wound of skin 984345629 T14.8XXD [id number] Nas Shah MD Main - [facility] [address] [place] [address] 0 08/16/2021 20:29:42 02/10/2022 13:25:25 Ankle ulcer 122782898 L97.309 [id number] Kika Hurtado MD Main - [facility] [address] [place] [address] 0 08/25/2023 15:08:05 08/29/2023 18:11:20 Malaise [id number] R53.81 Question viral illness versus iron infusion reaction. Advised patient to follow-up with his PCP and his hematologi st tomorrow. Patient is anemic but not critically so his labs do not indicate the need for emergent transfusio n. Advised to rest. Stay hydrated orally. He has Zofran already if he needs it. Patient requesting 1 dose of Tylenol -cannot do NSAIDs due to anemia and CKD. Advised max 500 mg of Tylenol 4 times a day but to not continue that more than 72 hours due to liver disease. Red flags reviewed [id number] Maryjane Pierson MD Main - [facility] [address] [place] [address] 0 09/13/2023 20:06:12 09/13/2023 22:29:58 Anemia 984729980 D64.9 [id number] Ashlee Bailey MD Main - [facility] [address] [place] [address] 09/28/2023 14:39:30 09/29/2023 11:27:00 Malaise and fatigue 210594717 R53.81 Anemia 439355747 D64.9 [id number] Sunshine Fuentes MD Main - [facility] [address] [place] [address] 0 03/05/2024 21:01:11 03/05/2024 23:42:41 Low blood pressure 49723861 I95.9 Health Concerns Section Related Observation LastModified by Organization Detai ls LastModified Time None Recorded Concern Status LastModified by Organization Details LastModified Time None Recorded Advance Directives Directive None Recorded Payers Encounter Date Sequence Insurance Name Policy Number Policy Fontenot Covered Member ID Fontenot Member ID Guarantor Name 08/16/2021 1 [facility] - DOS PRIOR TO 2022 - DUAL ELIGIBLE (MEDICARE REPLACEMENT/ADV ANTAGE - HMO) Venu Parks [id number] Venu Parks 08/25/2023 1 [facility] - DOS ON OR AFTER 2022 - DUAL ELIGIBLE - FPC OPTIONS AND ONE CARE (MEDICARE REPLACEMENT/ADV ANTAGE - HMO) Venu Parks [id number] Venu Parks 09/13/2023 1 [facility] - DOS ON OR AFTER 2022 - DUAL ELIGIBLE - FPC OPTIONS AND ONE CARE (MEDICARE REPLACEMENT/ADV ANTAGE - HMO) Venu Parks [id number] Venu Parks 09/28/2023 1 [facility] - DOS ON OR AFTER 2022 - DUAL ELIGIBLE - FPC OPTIONS AND ONE CARE (MEDICARE REPLACEMENT/ADV ANTAGE - HMO) Venu Parks [id number] Venu Parks 03/05/2024 1 [facility] - DOS ON OR AFTER 2022 - DUAL ELIGIBLE - FPC OPTIONS AND ONE CARE (MEDICARE REPLACEMENT/ADV ANTAGE - HMO) Venu Parks [id number] Venu Parks Notes Date Note Type Note Provider Name and Address Organization Details Recorded Time 08/16/2021 text/html Recovery Assistant summar y: 61 yo male with [id number] wound on left lateral malleolus x one month without change to size. Been applying Duoderm patch which makes the scab soft and pulls the scab off when he removes the patch. Patch relieves the itch and burn. Also c/o general malaise, abd discomfort, decreased appetite, and persistent minor nausea. Several gauze pads left so pt could apply Neosporin, per MD Shah? s instructions. Requestor HPI: Member had rash on left lateral ankle for over a month that turned into a wound, he was seen by [facility] on 3.1. The wound is now a quarter size with milky d/c on dressing. Wound is painful / pins and needles and does not seem to be healing . Member has been using erythromycin and duoderm . Member is concerned that it is infected . He denies fever/ chils/n/v/d Nas Shah MD [address] [facility],[address], [place], [address], FERNIE Crystal [employer] RAHEL 08/16/2021 20:39:20 08/25/2023 text/html HPI: BHN reporting hemoglobin? paleness? suffers COPD, HIV, liver disease ..................... ..................... ..................... ..................... ..................... ..................... ............... [facility] Nurse Triage Notes (Daryl Sneed): Comments: Certified Nurses' Aide verified the member's name//address and phone number. Education provided on the response time and the member was advised to monitor reported s/s and seek emergency treatment if needed. Member reports feeling unwell - Weakness - Decreased PO intake - Body aches - Increased extremity pain - Congestion/Cough/cold - SOB - on 2 liters O2 - Denies fever - S/S started a few days ago ..................... ..................... ..................... ..................... ..................... ..................... ............... Recovery Assistant Note From Gerard Small: Pt co weakness fatigue and chills. Denies NC cough NVD dizziness headache. Pt sts he feels the way he feels when he needs a blood transfusion. Baseline vitals assessed. POc bloodwork assessed unremarkable, Covid and flu swab negative. [facility] contacted and 500mg Tylenol po given. Pt advised to rest and drink plenty of fluids. Pt advised to eat healthy diet. [facility]. Pt education on signs indicating the ER. ..................... ..................... ..................... ..................... ..................... ..................... ............... Disposition: FulfilledSEGMD: Symptom onset last Tuesday when patient received an iron transfusion. The last H&H I have for him is on 12/23/2022 and it was 8.2/25 with a platelet count of 259 K. On 08/09/2023 per labs provided to the medic by his from his [facility] BUN was 41 creatinine 1. 45 with a GFR of 54. They did not do an H&H. Patient states that he is usually transfused when his H&H is less than or equal to 7.4/22. He does not know what his viral load is. He has not had any antipyretic, although he has Tylenol 500 mg at home. He is due for a renal biopsy to rule out a malignancy at [facility] tomorrow. He has chronic discoloration of his lower extremities status post prior open wounds. There are no acute open wounds. He denies any excessive bruising, hematuria, melena, hematochezia, hematemesis, epistaxis. Patient's PMH is significant for COPD/asthma, HIV with liver disease, HTN, Crohn's and CKD Kika Hurtado MD [address] [facility],[address], [place], [address], [place] 08/25/2023 19:24:23 09/13/2023 text/html CRC Nurse Triage Notes (Dat Caicedo): Chief Complaints: Weakness/Lethargy, Shortness of Breath/Dyspnea PMH: Hypertension, HIV Comments: Certified Nurses' Aide verified the member's name//address and phone number. Member calling c/o SOB, generalized weakness, and increased incontinence. Member reports fat pad biopsy on 08/25 on abdomen, reports on going L sided abdominal pain to L of the umbilicus & bruising, pt not currently on blood thinners. Member speaking in full complete, sentences at time of call. Education provided on the response time and the member was advised to monitor reported s/s and seek emergency treatment if needed -Bg Caicedo RN ..................... ..................... ..................... ..................... ..................... ..................... ............... Recovery Assistant Note From Mello Bishop: 63 yo M c/o SOB, generalized weakness, and increased incontinence. Pt has an extensive Medical history of Anemia, BPH, CAD, HTN, CHF, COPD, HIV, HLD, and Hep C. Pt did mention history of CA, but reports it's not dangerous. Pt also sts several times a year he needs a blood transfusion, and iron transfusions. Pt was recently D/C'd from a 2 night stay at the hospital for pneumonia and finished his Doxy a few days ago. Because of this hospitalization he was unable to receive his iron transfusion. Pt also had a fat biopsy in his LLQ, although there is some hematoma, there are no signs of infection. Back in July pt was changed from Lasix to Torsemide, and this along with BPH, has had polyuria, and has been since incontinent. Pt does deny any hematochezia or hematuria, but c/o polyuria. Pt denies N/V but adds has had some diarrhea episodes lately. Pt answers questions appropriately, but at times seems to be a poor historian, not answer questions completely. Due to weakness iSTAT was completed. Due to low H&H pt's family requested transport to hospital. They also explained, they understood that 7.5 is not too low, but in the past, they have always given him a transfusion at that level. Family also estimated is weight of 109 and that he has lost weight in the last few weeks. Pt also c/o 7/10 chronic pain. 911 was called and pt transported to [facility]. ..................... ..................... ..................... ..................... ..................... ..................... ............... Disposition: Fulfilled Maryjane Pierson MD [address] [place] [address],[address], [place], [address], [place] 09/13/2023 21:01:41 09/28/2023 text/html CRC Nurse Triage Notes (Zahra May): Reason For Request: Pt reporting extreme fatigue>shortness of breath>Remicade infusion (2hourS) Chief Complaints: Weakness/Lethargy, Shortness of Breath/Dyspnea PMH: Hypertension, HIV Comments: Member had Remicade infusion on Tuesday for Crohn's. Receives every 8 weeks. Since infusion patient has been feeling severe fatigue, decreased appetite, dyspnea on exertion. 02 dependent. History of blood and Iron Infusions. States he typically feels like this when he needs a transfusion. Would like bloodwork checked prior to going to hospital. Able to speak full sentences without difficulty breathing. ..................... ..................... ..................... ..................... ..................... ..................... ............... Recovery Assistant Note From Gerard Small: Pt co feeling unwell after infusion earlier in the week. Pt sts doesn? t feel as bad today as he did yesterday however is concerned he may need a blood infusion or iron infusion. Pt requested is POc bloodwork be assessed. Pt denies co sob dizziness or fever nausea or vomiting. Baseline vital? s assessed, Covid and flu swab negative . POc bloodwork unremarkable. [facility] contacted and advised to monitor symptoms. Pt education on signs indicating the ER. Pt advised to follow up with care team. ..................... ..................... ..................... ..................... ..................... ..................... ............... Disposition: Fulfilled Ashlee Bailey MD [address] [facility],[address], [place], [address], FERNIE - RAHEL FONSECA 09/28/2023 14:55:07 03/05/2024 text/html HPI: Pt's FELICITY Flores reporting COVID>SOB>Pain/weakne ss through the body ..................... ..................... ..................... ..................... ..................... ..................... ............... [facility] Nurse Triage Notes (Salima Ferguson): Chief Complaints: Shortness of Breath/Dyspnea, Weakness/Lethargy, Cough PMH: Hypertension, HIV Other Allergies: venlafaxine, ambien Comments: Referral being placed by patients CP. PMHx- HIV, HTN, COPD on o2, leukemia. ALLERGIES- ambien and venlafaxine. Patient who is covid+, having ongoing respriatory issues. Per CP patient feels sob, having all over body aches, weakness, and subjective fevers, +chills, denies n/v/d. Patient agreeable to an instED visit. Recovery Assistant Organization Information for [employer] Legal Name: [facility] Address: [address] [place] [address], [place] [address], Sound Art Instructor: Diego Wallace MD IA No.: [id number] Recovery Assistant POC Test Results from [employer] Rapid COVID antigen (21:26:39) COVID: - Rapid influenza antigen (21:26:42) Flu: - ..................... ..................... ..................... ..................... ..................... ..................... ............... Recovery Assistant Note From Efra Wyatt: Pt reports several days of SOB, PAVON, chest tightness, weakness/fatigue. Pt sts his girlfriend is covid positive. Pt sts he is eating and drinking normally. Pt uses O2 at 2 lpm at baseline. Pt is alert, NAD, speaking full sentences. Hypotensive at 77/50. Pts O2 dropped from 96-82% while speaking and/or with any movement. Lungs CTA. Rapid covid and flu negative. [facility] consulted and recommends ED transport/Eval. 911 initiated for transport to [facility] ED. SBAR to [facility]. ..................... ..................... ..................... ..................... ..................... ..................... ............... Disposition: Fulfilled Sunshine Fuentes MD [address] [facility],[address], [place], [phone], [place] 03/05/2024 22:09:46
[2024-09-19 04:59] LABS: IgA 80 mg/dL (70-320); IgG 425 mg/dL (600-1540); IgM 107 mg/dL (50-300)
[2024-09-19 15:59] LABS: Alpha 1 Anti-trypsin 140 mg/dL (83-199)
[2024-09-22 13:04] LABS: Immunoglobulin E <2 kU/L (<OR=114)
== END 2024-09-18 13:39 | disposition home or self-care (01) ==
LOC: HO.LAB 13:38
PROVIDERS: PCP Internal Medicine; Referring Provider Internal Medicine; Visit Provider Hospitalist
DX: J44.9 Chronic obstructive pulmonary disease, unspecified (principal); J96.11 Chronic respiratory failure with hypoxia; J96.12 Chronic respiratory failure with hypercapnia; J43.2 Centrilobular emphysema; B20 Human immunodeficiency virus [HIV] disease; I50.9 Heart failure, unspecified; N18.9 Chronic kidney disease, unspecified
CPT/HCPCS: 36415; 80048; 82103; 82784; 82785; 85025; 85652; 99202

== ENCOUNTER 2024-11-20 13:09 | Outpatient (REF) | payer OTHER, SELFPAY ==
--- NOTE | 2024-11-20 14:14 | PFT_ITS ---
Flows: FEV1: 31 % of predicted at 0.86 L FVC: 94 % of predicted at 3.39 L FEV1/FVC: 25 % Bronchodilator response: Absent Volumes: Total lung capacity: 91 % of predicted at 5.34 L Residual volume: 115 % of predicted at 2.22 L Slow vital capacity: 79 % of predicted at 3.12 L Expiratory reserve volume: 131 % of predicted at 1.23 L Diffusion capacity: Severely decreased Impression: Very severe obstructive ventilatory defect with no bronchodilator response. Decreased diffusion capacity suggests emphysema. MTDD
[2024-11-20 14:55] VITALS: PULSE 85; O2SAT 97
[2024-11-21 10:32] LABS: ABG Refer to POC result
[2024-11-21 10:43] LABS: ABG pCO2 54 mmHg (32-45)
[2024-11-21 10:44] LABS: ABG Base Excess 8.5 mmol/L; ABG pO2 40 mmHg (83-108)
[2024-11-22 19:43] LABS: TS Negative Control Passed; TS Panel A 0; TS Panel B 0; TS Positive Control Passed; TSpotTB Negative (Negative)
== END 2024-11-20 13:10 | disposition home or self-care (01) ==
LOC: HO.RESP 13:09
PROVIDERS: PCP Internal Medicine; Visit Provider Hospitalist
DX: J43.2 Centrilobular emphysema (principal); J96.12 Chronic respiratory failure with hypercapnia; J96.11 Chronic respiratory failure with hypoxia; I50.9 Heart failure, unspecified; N18.9 Chronic kidney disease, unspecified; B20 Human immunodeficiency virus [HIV] disease
CPT/HCPCS: 36415; 82803; 86481; 94010; 94618; 94640; 94727; 94729; 99212

== ENCOUNTER 2024-11-20 14:48 | Outpatient (AMB) | payer OTHER, SELFPAY ==
[2024-11-20 14:57] VITALS: BP 144/68; PULSE 86; O2SAT 96
--- NOTE | 2024-11-20 14:57 | A.OFFVIS_ITS ---
Vital Signs 11/20/24 14:57 Height 5 ft 4 in BMI Reason not done Patient refused/unable BP 144/68 H Blood Pressure Location Lt brachial Position Sitting Pulse 86 Pulse Source Pulse Oximeter Pulse Oximetry (%) 96 Oxygen Delivery Method Room Air Intake Visit Reasons: chronic resp failure with hypoxia Sales Administration Specialist Required: No Accompanied by: Daughter Allergies amoxicillin (From Augmentin) Allergy (Intermediate, Verified 11/20/24 15:01) Rash azithromycin Allergy (Intermediate, Verified 11/20/24 15:01) Rash clavulanic acid (From Augmentin) Allergy (Intermediate, Verified 11/20/24 15:01) Rash HPI Comments Details: The patient is a 64-year-old gentleman with known COPD with extensive emphysema and chronic respiratory failure on oxygen in addition to HIV chronic kidney disease and heart failure. Apparently was recently admitted to [facility] with an exacerbation of his breathing. He did have a CT scan of the chest which I personally reviewed demonstrating extensive emphysema and also has some evidence of ground-glass opacities likely from a viral syndrome. He did have a blood gas in the hospital demonstrated that he does have evidence of both hypoxic and also hypercarbic respiratory failure. Has significant oxygen requirements. We did have him undergo a walk test here in the office to see if he would qualify for portable oxygen concentrator but his oxygen dropped to 86% demonstrating that needs to stay on continues oxygen. He gets the throughout. . His blood gas demonstrated a pCO2 of 64 minutes minutes of mercury. The patient has evidence of hypercarbic respiratory failure due to his COPD. This carries a poor prognosis and high risk for he has increased risk for r ehospitalization. He does have increased work of breathing. He does need to started noninvasive ventilator to provide better gas exchange improved work of breathing and improve prognosis and decrease hospitalizations. Will going to work with his [employer] in order to get him a noninvasive ventilator this time. He is going to continue with respiratory therapy as he is using the nebulizer 2 to 3 times a day. 11/20/2024 the patient is here for hospital follow-up visit. The patient was admitted to [facility] for couple weeks with respiratory failure. We had tried to give him a noninvasive ventilator through his [employer] insurance but they denied it. In the hospital he did require BiPAP and he actually did respond well to BiPAP. We are trying to get him a BiPAP before discharge but was not possible. He did have a blood gas demonstrating a pCO2 of 56 mmHg. And he also had a overnight oximetry on 2 L of his baseline oxygen needs. Will request that from [facility]. The patient also had a blood gas today that confirmed that his POC O2 was still elevated at 54 mmHg. The patient needs to be started on BiPAP LATA to minimize risk for hospitalization. The BiPAP will also help with the gas exchange and will work of breathing. And will have to use the BiPAP at nighttime for sleep. He can also use the BiPAP as needed during daytime. He does continue to use his respiratory therapy as prescribed. He also continues on his diuretics. While in the hospital he did have a CTA that I did personally review. He does have some emphysema and does have some bilateral pleural effusions. But this is common for him. They are small. The patient is also using oxygen. We did try him on a portable oxygen concentrator while he was here with activity. He was actually able to maintain a pulse ox of 92% on 4 L pulse. Therefore I will request a conserving device POC from his [employer], [employer] that he can have better portability outside of the home. He should continue the 2 L at rest and should continue the oxygen 2 L while sleeping. Once he gets the BiPAP he will continue using the 2 L while on the BiPAP. [facility] Medical History (Updated 09/18/24 @ 20:19 by Bladimir Desir MD) CKD (chronic kidney disease) CHF (congestive heart failure) HIV (human immunodeficiency virus infection) Chronic hypoxemic respiratory failure Chronic hypercapnic respiratory failure COPD (chronic obstructive pulmonary disease) Social History (Updated 09/18/24 @ 13:49 by Saskia Reynaga CMA) Alcohol intake: former Patient Tobacco Use Status: Never used Tobacco Review of Systems Const Denies chills, Denies daytime sleepiness, Reports fatigue, Denies poor appetite, Denies snoring, Denies stops breathing during sleep, Denies weakness, Denies weight gain and Reports weight loss Eyes Denies loss of vision ENT Reports dizziness and Denies hearing loss Card Denies chest pain, Denies irregular heart rhythm, Denies claudication, Denies leg edema, Denies lightheadedness, Denies palpitations, Reports dyspnea, Reports dyspnea on exertion and Denies orthopnea Resp Reports cough, Denies hemoptysis, Denies excessive phlegm production, Reports dyspnea, Reports dyspnea on exertion, Denies snoring and Reports wheezing GI Denies abdominal pain, Denies hematochezia, Denies change in bowel habits, Denies nausea and Denies vomiting Denies dysuria and Denies urinary frequency Musc Denies arthralgias, Denies muscle weakness, Denies numbness and Denies other Skin/Breast Denies nail changes and Denies rash Neuro Denies Abnormal speech present, Reports dizziness, Denies loss of vision, Denies memory loss, Denies numbness and Denies weakness Psych Reports change in appetite and Denies memory loss Endo Reports fatigue and Denies palpitations Brayden/Lymph Denies easy bruising Aller/Immun Reports wheezing Physical Exam Vital Signs: Last Vital Signs Pulse 86 11/20/24 14:57 BP 144/68 H 11/20/24 14:57 Pulse Ox 96 11/20/24 14:57 Oxygen Delivery Method Room Air 11/20/24 14:57 Const General: comfortable and ill appearing Nutritional Appearance: thin HEENT Head: Yes normocephalic Eyes Conjunctivae: conjunctival abnormal bilateral pallor Neck Neck: Yes supple Chest Chest palpation & inspection: normal inspection of the chest Resp Effort & Inspection: normal respiratory effort Auscultation: diminished lung sounds Cardio Heart sounds: S1 normal heart sound present and S2 normal heart sound present GI Palpation (GI): Soft to palpation Skin General skin exam: no rashes or lesions noted Neuro Speech: No Abnormal speech present Extrem General: Yes clubbing, No cyanosis and No edema Office Procedures 6 Minute Walk Time:: 21:26 SPO2 % at rest: 88 Pulse at rest: 89 Distance in yards walked: 75 Zain Score: 7 Supplemental Oxygen: desaturated on RA at rest to 88%, placed on2L/pulse and the n ambulated, increased O2 to 4L/pulse to maintain Pulse ox to 92% [address]8870 - 6 Minute Walk Results Reviewed Results Reviewed: Personally reviewed CTA with extensive emphysema and bilateral pleural effusions Assessment & Plan Assessment & Plan (1) CHF (congestive heart failure): Code(s): I50.9 - Heart failure, unspecified Category: Medical Qualifiers: Heart failure chronicity: unspecified Heart failure type: unspecified Qualified Code(s): I50.9 - Heart failure, unspecified (2) CKD (chronic kidney disease): Code(s): N18.9 - Chronic kidney disease, unspecified Category: Medical Qualifiers: Chronic kidney disease stage: unspecified stage Qualified Code(s): N18.9 - Chronic kidney disease, unspecified (3) COPD (chronic obstructive pulmonary disease): Code(s): J44.9 - Chronic obstructive pulmonary disease, unspecified Category: Medical Qualifiers: COPD type: emphysema Emphysema type: centrilobular Qualified Code(s): J43.2 - Centrilobular emphysema (4) Chronic hypercapnic respiratory failure: Code(s): J96.12 - Chronic respiratory failure with hypercapnia Category: Medical (5) Chronic hypoxemic respiratory failure: Code(s): J96.11 - Chronic respiratory failure with hypoxia Category: Medical (6) HIV (human immunodeficiency virus infection): Code(s): Z21 - Asymptomatic human immunodeficiency virus [HIV] infection status Category: Medical Qualifiers: HIV symptom status: currently asymptomatic, with history of HIV-related illness Qualified Code(s): B20 - Human immunodeficiency virus [HIV] disease Plan Continue respiratory therapy Nebulizer therapy Based on his very severe COPD, Hypercarbia, O2 dependent, and frequent hsopitalizations, the patient needs to start BIPAP as soon as possible. He does gerry a poor prognosis and high risk for rehospitalization. His insurance can improve his prognosis and decrease his hospitalization by approving the BIPAP. He already had couple bloodgases and an overnight oximetry at [facility]. I am hopeful that we can provide this needed therapy for the patient. To note, we had already requested a sleep study, but the patient had to be admitted to the hospital prior to having the study. It will likely be the case again if his insurance continues to deny and delay his much needed therapy. continue oxygen supplementation, continuous. Does qualify for a POC at this time. We will request POC for better portability outside of the home. PFTs F/U 2 months Orders: Orders Venous Blood Gas 6 Weeks I50.9 - Heart failure, unspecified, N18.9 - Chronic kidney disease, unspecified Immunoglobulin G Subclasses Today I50.9 - Heart failure, unspecified, N18.9 - Chronic kidney disease, unspecified Complete Blood Count Auto Diff Today I50.9 - Heart failure, unspecified, N18.9 - Chronic kidney disease, unspecified Basic Metabolic Panel Today I50.9 - Heart failure, unspecified, N18.9 - Chronic kidney disease, unspecified Coding Level of Care Code Est Pt Level 5 (71171) Complex EM visit Add On G2211 Diagnoses Congestive heart failure, unspecified HF chronicity, unspecified heart failure type I50.9 Heart failure chronicity: unspecified Heart failure type: unspecified Chronic kidney disease, unspecified CKD stage N18.9 Chronic kidney disease stage: unspecified stage Centrilobular emphysema J43.2 COPD type: emphysema Emphysema type: centrilobular Chronic hypercapnic respiratory failure J96.12 Chronic hypoxemic respiratory failure J96.11 Currently asymptomatic HIV infection, with history of HIV-related illness B20 HIV symptom status: currently asymptomatic, with history of HIV-related illness CPT Codes Coding ([id number]) Time Spent (min) 70
[2024-11-20 21:25] VITALS: PULSE 89; O2SAT 88
== END 2024-11-20 15:37 | disposition home or self-care (01) ==
PROVIDERS: PCP Internal Medicine; Visit Provider Hospitalist
DX: R94.2 Abnormal results of pulmonary function studies (principal)
CPT/HCPCS: 94060; 94618; 94727; 94729; 99215

== ENCOUNTER → 2024-12-30 20:30 | Outpatient (REF) | payer OTHER, SELFPAY ==
--- OUTSIDE RECORDS SUMMARY | 2024-12-30 22:43 | XMS_ITS | Clinical Summary ---
Author Organization [address] [place] [address] [place] [phone] Phone Care Team Providers Care Finance Accounting Internship Name Role Phone Pablo Hansen MD Primary Care Provider [phone] Medications atorvastatin (LIPITOR) 40 mg tablet Take 1 tablet (40 mg total) by mouth at bedtime. Active gabapentin (NEURONTIN) 100 mg capsule Take 2 capsules (200 mg total) by mouth 3 (three) times a day. Active metoprolol succinate (TOPROL-XL) 25 mg 24 hr tablet Take 1 tablet (25 mg total) by mouth 1 (one) time each day. Do not crush or chew. Active omeprazole (PriLOSEC) [address] capsule Take 1 capsule (40 mg total) by mouth 1 (one) time each day. FOR 90 DAYS. Active Active Problems Problem Noted Date Diagnosed Date Failure to thrive in adult 10/02/2024 CHF with cardiomyopathy (CMS/HCC V24, CMS/HCC V2 8) 10/02/2024 CAD (coronary artery disease) 09/24/2024 Chronic HFrEF (heart failure with reduced ejection fraction) (CMS/HCC V24, CMS/HCC V28) 09/24/2024 Encounters Date Type Department Care Team Description 11/27/2024 Telephone [facility] - [facility] [address] [facility] [address] [place] [address] Zeny Archer MD Appointment 10/10/2024 Telephone [facility] - [facility] [address] [facility] [address] [place] [address] Jennifer Morataya PA Hospital Follow-up (Hospital follow up ) 10/05/2024 Telephone [facility] - [address] [facility] [address] [place] [address] Jennifer Morataya PA No Show from Last 3 Months Surgical History Surgery [...] of stricture of ileum ROTATOR CUFF REPAIR 2012 Right PROCEDURE: HISTORICAL ROTATOR CUFF REPAIR OTHER [...] DX :CAD (coronary artery disease); COMMENT: -NSTEMI 2016 Crohn's colitis ([facility] V24 , [facility] V28) DX:Crohn's colitis ([facility]) Crohn's disease ([facility] V24 , [facility] V28) DX:Crohn's disease ([facility]); CO MMENT: dx'd 06/2015 Depression DX:Depression Emphysema/COPD ([facility] V24, [facility] V28) DX:Emphysema/COPD ([facility]) Fatigue DX:Fatigue GERD (gastroesophageal reflux disease) DX:GERD (gastroesophageal reflux disease) H/O small bowel obstruction DX:H /O small bowel obstruction; COMMENT: Recurrent Hyperlipidemia DX:Hyperlipidemi a Hypertension DX:Hypertension Hypothyroidism DX:Hypothyroidis m Peripheral neuropathy DX:Periphe ral neuropathy Purpura ([facility] V24) DX:Purpura ([facility]) HIV (human immunodeficiency virus infection) ([facility] V24, [facility] V28) DX:HIV (human im munodeficiency virus infection) ([facility]) Dental infection DX:Dental infec tion Kidney disease, chronic, sta ge III (GFR 30-59 ml/min) ([facility] V24, [facility] V28) DX:Kidney dis ease, chronic, stage III (GFR 30-59 ml/min) ([facility]) COPD with emphysema (CMS/HCC V24, [facility] V28) DX:COPD with emphysema ([facility]) 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 ([facility] V24, [facility] V28) DX:Non-pressure chronic ulce r of left ankle with fat layer exposed ([facility]) Chronic kidney disease (CKD) , stage II (mild) DX:Chronic kidney disease (C KD), stage II (mild) CKD (chronic kidney disease) DX: CKD (chronic kidney disease) Covid-19 DX:COVID-19 Abdominal pain DX:Abdominal bob n Anemia DX:Anemia Hematuria DX:Hematuria Immunocompromised state ([facility] V24) DX:Immunocompromised state ([facility]) Legionella infection ([facility] V24, [facility] V28) DX:Legionella infection ([facility] ) RLL pneumonia DX:RLL pneumonia Shoulder pain DX:Shoulder pain Severe malnutrition ([facility] V24) Family History Medical History Relation Name Comments [...] 11/02/2023 1:34 PM EDT Plan of Treatment Health Maintenance Due Date Last Done Comments Meningococcal ACWY Vaccine (1 - Risk 2-dose series) 1962 MMR Vaccines (1 of 2 - Risk 2-dose series) 1978 Hepatitis A Vaccines (1 of 2 - Risk 2-dose series) 1979 Zoster Vaccines (1 of 2) 1979 Pneumococcal Vaccine: 50+ Years (3 of 3 - PCV) 07/16/2016 07/16/2015, 11/16/2011 Hepatitis B Vaccines (1 of 3 - Risk 3-dose series) 2020 RSV Immunization Adult Patients (1 - Risk 60-74 years 1-dose series) 2020 COVID-19 Vaccine (3 - Pfizer risk series) 09/09/2020 08/12/2020, 07/20/2020 Cholesterol Screening (Lipid Panel) 05/08/2022 Colorectal Cancer Screening: Colonoscopy 05/08/2022 Hepatitis C Screening 05/08/2022 Medicare Annual Wellness Visit 05/08/2022 Social Influencers of Health Screening 05/08/2022 DTaP,Tdap,and Td Vaccines (2 - Td or Tdap) 02/13/2023 02/13/2013 Depression Screening 05/30/2024 Hypertension/CHF/CAD Annual BMP Blood Test 12/06/2024 12/07/2023, 12/22/2022 Influenza Vaccine (#1) 2025 3, 06/12/2020, 03/28/2019, Additional history exists HIB Vaccines [...] on patient's age to complete this topic Insurance [facility] MEDICARE Member Subscriber Plan / Payer (Ef fective 2016-Present) Name:MIGUEL PARKS Relation to Subscriber:Self Name:Miguel Parks A Payer ID:[id number] Group ID:[id number] Type:Not on file Address: [place] [address] [address] [place] [id number] Care Teams Finance Accounting Internship Relationship Specialty Start Date End Date Pablo Hansen MD [address] [address] PCP - General 07/03/15
--- OUTSIDE RECORDS SUMMARY | 2024-12-30 22:43 | XMS_ITS | Clinical Summary ---
Author Organization [facility] Address [address] [facility] [address] [place] [address] Phone Care Team Providers Care Banquet Manager Name Role Phone Pablo Hansen MD Primary Care Provider [phone] Allergies Active Allergy Reactions Criticality Noted Date [...] (one) time each day 1 Active Genvoya [phone] MG per tablet Take 1 tablet by [...] Care Team (Late st Contact Info) Description 01/08/2025 3:15 PM EDT Office Visit [facility] [address] [facility] [address] [place] [phone] Chin Ortega MD [address] [phone] Health Maintenance Due Date Last Done Comments Colorectal Cancer Screening: Annual FOBT 2009 Colorectal Cancer Screening: Colonoscopy 2009 Colorectal Cancer Screening: Sigmoidoscopy 2009 Hepatitis B Vaccine (1 of 3 - Risk 3-dose series) 2020 Pneumococcal Vaccine: 50+ Ye ars (4 of 4 - PCV20 or PCV21) 07/16/2020 07/16/2015, 02/13/2013, 02/13/2013, Additional history exists Influenza Vaccine (#1) 2025 , 04/03/2023, 06/12/2020, Additional history exists Pneumococcal Vaccine: Peds ( 0 to 5 Years) and At-Risk Patients (6 to 49 Years) Discontinued 07/16/2015, 02/13/2013, 02/13/2013, Additional history exists Insurance [facility] ([id number]) [facility] ([id number]) Care Teams Banquet Manager Relationship Specialty Start Date End Date Pablo Hnasen MD [address] [place] [address] PCP - General Internal Medicine 02/13/21
== END ==
LOC: HO.SL 20:30
PROVIDERS: PCP Internal Medicine; Visit Provider Hospitalist
DX: Z13.89 Encounter for screening for other disorder (principal)

== ENCOUNTER → 2024-12-30 20:49 | Outpatient (BNV) | payer OTHER, SELFPAY | PROVIDERS: PCP Internal Medicine; Visit Provider Psychiatry & Neurology Neurology | DX: J96.12 Chronic respiratory failure with hypercapnia (principal) | CPT/HCPCS: 95810 ==

== ENCOUNTER → 2024-12-31 19:40 | Outpatient (REF) | payer OTHER, SELFPAY ==
--- OUTSIDE RECORDS SUMMARY | 2025-01-07 07:37 | XMS_ITS | Clinical Summary ---
Author Organization [facility] Address [address] [facility] [address] [place] [address] Phone Care Team Providers Care Tree Surgeon Name Role Phone Pablo Hansen MD Primary Care Provider [phone] Allergies Active Allergy Reactions Criticality Noted Date [...] (one) time each day 1 Active Genvoya [phone] MG per tablet Take 1 tablet by [...] Visit [facility] [address] [facility] [address] [place] [phone] Chin Ortega MD [address] [phone] Health Maintenance Due Date Last Done Comments [...] 07/16/2015, 02/13/2013, 02/13/2013, Additional history exists Insurance [facility] ([id number]) [facility] ([id number]) Care Teams Tree Surgeon Relationship Specialty Start Date End Date Pablo Hansen MD [address] [place] [address] PCP - General Internal Medicine 02/13/21
--- OUTSIDE RECORDS SUMMARY | 2025-01-07 07:38 | XMS_ITS | Clinical Summary ---
Author Organization [address] [place] [address] [place] [phone] Phone Care Team Providers Care White Lead Filterer Name Role Phone Pablo Hansen MD Primary Care Provider Medications atorvastatin (LIPITOR) 40 mg tablet Take [...] Type Department Care Team Description 11/27/2024 Telephone [facility] - [facility] [address] [facility] [address] [place] [address] Zeny Archer MD Appointment 10/10/2024 Telephone [facility] - [facility] [address] [facility] [address] [place] [address] Jennifer Morataya PA Hospital Follow-up (Hospital follow up ) from Last 3 Months Surgical History Surgery [...] artery disease); COMMENT: -NSTEMI 2017 Crohn's colitis ([facility] V24 , [facility] V28) DX:Crohn's colitis ([facility]) Crohn's disease ([facility] V24 , [facility] V28) DX:Crohn's disease ([facility]); CO MMENT: dx'd 06/2015 Depression DX:Depression Emphysema/COPD ([facility] V24, [facility] V28) DX:Emphysema/COPD ([facility]) Fatigue DX:Fatigue GERD (gastroesophageal reflux disease) DX:GERD (gastroesophageal reflux disease) H/O small bowel obstruction DX:H /O small bowel obstruction; COMMENT: Recurrent Hyperlipidemia DX:Hyperlipidemi a Hypertension DX:Hypertension Hypothyroidism DX:Hypothyroidis m Peripheral neuropathy DX:Periphe ral neuropathy Purpura ([facility] V24) DX:Purpura (HCC) HIV (human immunodeficiency virus infection) ([facility] V24, [facility] V28) DX:HIV (human im munodeficiency virus infection) ([facility]) Dental infection DX:Dental infec tion Kidney disease, chronic, sta ge III (GFR 30-59 ml/min) ([facility] V24, [facility] V28) DX:Kidney dis ease, chronic, stage III (GFR 30-59 ml/min) ([facility]) COPD with emphysema ([facility] V24, [facility] V28) DX:COPD with emphysema ([facility]) 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 ([facility] V24, [facility] V28) DX:Non-pressure chronic ulce r of left ankle with fat layer exposed ([facility]) Chronic kidney disease (CKD) , stage II (mild) DX:Chronic kidney disease (C KD), stage II (mild) CKD (chronic kidney disease) DX: CKD (chronic kidney disease) Covid-19 DX:COVID-19 Abdominal pain DX:Abdominal bob n Anemia DX:Anemia Hematuria DX:Hematuria Immunocompromised state ([facility] V24) DX:Immunocompromised state ([facility]) Legionella infection ([facility] V24, [facility] V28) DX:Legionella infection ([facility] ) RLL pneumonia DX:RLL pneumonia Shoulder pain DX:Shoulder pain Severe malnutrition ([facility] V24) Family History Medical History Relation Name [...] patient's age to complete this topic [place] [address] [place] [address] MEDICARE Member Subscriber Plan / Payer (Ef fective 2016-Present) Name:MIGUEL PARKS Relation to Subscriber:Self Name:Parks, Miguel A Payer ID:[id number] Group ID:[id number] Type:Not on file Address: [facility] [address] [phone] Care Teams White Lead Filterer Relationship Specialty Start Date End Date Pablo Hansen MD [address] [phone] PCP - General 07/03/15
== END ==
LOC: HO.SL 19:40
PROVIDERS: PCP Internal Medicine; Visit Provider Hospitalist
DX: J96.12 Chronic respiratory failure with hypercapnia (principal); J96.11 Chronic respiratory failure with hypoxia; G47.61 Periodic limb movement disorder
CPT/HCPCS: 95810